=== PATIENT | female | born 1955 | race Caucasian/White ===

== ENCOUNTER 2020-12-27 08:08 | Outpatient (RCR) | payer BC, SELFPAY ==
--- NOTE | 2020-12-30 07:16 | HP.PTEVAL ---
Patient's Visit Information MING BOSTON is a 65 year old F referred to Physical Therapy by Dr. Stephanie Mcintyre MD with a diagnosis of R sided sciatica. Date of Evaluation: 12/27/20 Physical Therapist: Delgado Wall DPT - Visit Plan Frequency: 1-2x /Week Duration: 4-6 Weeks Plan: Start with extension progression in prone and standing. Pt. to complete x6 daily. Pt. to add in lumbar support in sitting. Pt. to avoid flexion positioning until symptoms reduce. Ass symptoms reduce add in core stability exercises and progress back into IADLs as tolerated. - Subjective Pt. is here today for her initial evaluation with diagnosis of R sided sciatica. Her pain has been occuring for a bit over a month. Pt. reports no mech of injury, but just started and gradually became worse. She has tried chiropractic without much relief. She does report reduction in symptoms with prescription meds. Increases pain: prolonged sitting, sidelying, bending forward. Decreases pain: walking and standing, pain medication. Pt. reports pain starts slightly in her back, bu is more painful down her leg to her foot at times. Currently in her calf 01/11. Pt. denies N/T, but did feel like her R leg gave out on her today when she was standign bent over at her table working. Pt. does not work outside of the home, but does typically do a lot of her household work. Currently she has been trying to do some, but children have been helping out more. Pt. did have an MRI, but did not have results with her. She was unsure of results, but thought it said something about stenosis. She to see pain management in Wednesday01/03/21. Pt. is hopeful to reduce symptoms in order to get back to all household work activities and sleep better without limitations. - Pain R lumbar spine Pain Intensity (Out of 10): 0 Pain Intensity Range: 0, 9 R leg Pain Intensity (Out of 10): 4 Pain Intensity Range: 9 - Objective POSTURE: Pt. has slight flexed posture. Pt. has no lateral shift, mild FH posture. Equal iliac crest heights. PALPATION: Pt. has stiffness with palaption of lumbar spine with PA spring testing at L3-S1, mild pain at L4/L5, L5/S1. No pain at piriformis, no pain with palpation of HS or calf musculature. NEURO: Pt. has normal sensation to light touch throughout BLEs. Pt. has 2+ achilles and patellar DTR of BLEs. Pt. is abl to rise on heels and toes without limitations. ROM: LUMBAR SPINE: flexion- min loss increase NW in calf and HS, exten min loss decrease in symptoms, SB nil loss bilat NE, rotation R min loss increase NW, rotation L nil loss LE. Hips: normal hip ROM bilaterally, normal hip IR/ER without increase in symptoms. Pt. does have tight HS on R side with reports of increased pain suiggesting tension on sciatic nerve. MMT: LLE 5/5 throughout; RLE: ankle DF 4+/5, rest 5/5; knee- ext 4/5; flexion 5/5; hip- flexion 4/5, abd 4/5, ext 4+/5. Core strength- fair mild increase NW. GAIT: Pt. ambulates without AD. She has normal pattern with slight lateral hip translation. She does report increased symptoms with walking in her R calf. - Special Tests L/S Slump test left side: Negative L/S Slump test right side: Positive L/S Left Straight Leg Raise: Negative L/S Right Straight Leg Raise: Positive Lumbar Standing: Flexion - Mechanical Response: No effect Lumbar Standing: Flexion - Symptoms During Testing: Increases Lumbar Standing: Flexion - Symptoms After Testing: Worse Lumbar Standing: Extension - Mechanical Response: No effect Lumbar Standing: Extension - Symptoms During Testing: Decreases Lumbar Standing: Extension - Symptoms After Testing: Centralized Lumbar Standing: Right Side Glides - Mechanical Response: No effect Lumbar Standing: Right Side [place] - Symptoms During Testing: No effect Lumbar Standing: Right Side [place] - Symptoms After Testing: No effect Lumbar Standing: Left Side [place] - Mechanical Response: No effect Lumbar Standing: Left Side [place] - Symptoms During Testing: No effect Lumbar Standing: Left Side [place] - Symptoms After Testing: No effect Lumbar Lying: Extension - Mechanical Response: Increases motion Lumbar Lying: Extension - Symptoms During Testing: Decreases Lumbar Lying: Extension - Symptoms After Testing: Better - Goals Goal 1:: LTG: Pt. to be I with HEP. Goal Time Frame: 2-4 Weeks Goal 2:: STG: pt. to be able to sit in confortable chair for 30min without increase in distal symptoms. Goal Time Frame: 2-4 Weeks Goal 3:: STG: Pt. to have reduce in radiating symptoms by 50% in RLE. Goal Time Frame: 2 Weeks Goal 4:: LTG: Pt. to have 0/10 pain in RLE or lumbar spine. Goal Time Frame: 4-6 Weeks Goal 5:: STG: Pt. to sleep without increase in symptoms allowing for increased quality of life. Goal Time Frame: 2-4 Weeks Goal 6:: LTG: Pt. to resume all houshold work without increase in symptoms. Goal Time Frame: 4-6 Weeks - Rehabilitation Potential Physical Therapy Diagnosis: Pt. has signs and symptoms consistent with R sided sciatica. Pt. did have positive response with extension progression today. Pt. reports centralization of pain from calf to posterior thig, no pain after REIL. Pt. would benefit from PT to work on extension progression then progress to core stability exercises. Rehabilitation Potential: Excellent - Anticipated Interventions Patient/Client Instruction: Educate patient on: Condition, Plan of Care, Risk Factors, Benefits of Fitness Program For the Purpose of:: To improve decision making, To facilitate caregiver knowledge, To improve self management, To prevent re-injury, To improve ability to perform tasks related to life management, To improve tolerance to ADL's Therapeutic Exercise to Include: Strength training, Power training, Body mechanics, Postural training, Flexibilty training, Passive ROM, Active ROM, Dynamic Lumbar Stabilization, Adalberto Exercises For the Purpose of:: To decrease pain, To decrease swelling/inflammation, To increase ROM, To improve nutrient delivery to tissue, To increase oxygenation perfusion, To improve muscle performance and motor function, To improve ability to perform ADL's, To improve health of tissue, To decrease soft tissue restriction, To increase flexibility/ROM Manual Therapy Techniques to Include: Mobilization, Soft tissue mobilization For the Purpose of:: To decrease pain, To decrease swelling/inflammation, To increase ROM, To improve nutrient delivery to tissue, To increase oxygenation perfusion, To improve muscle performance and motor function Ultrasound (thermal/non thermal): Yes For the Purpose of:: To decrease pain, To decrease swelling/inflammation, To increase ROM, To improve nutrient delivery to tissue, To increase oxygenation perfusion, To improve muscle performance and motor function Thank you for the opportunity to evaluate your patient. For Medicare and Medicare HMO plans, please review the plan of care and approve it. It will need to be FAXED BACK to us at [phone] for Medicare purposes. For Medicare only, by signing this I certify the plan of care. Please let me know if there are questions or concerns regarding this plan of care. Physician Signature: Date:
== END 2020-12-27 19:00 | disposition home or self-care (01) ==
LOC: PT 08:08
PROVIDERS: PCP Family Medicine; Referring Provider Family Medicine; Visit Provider Family Medicine
DX: M54.31 Sciatica, right side (principal)
CPT/HCPCS: 97161

== ENCOUNTER 2021-12-22 08:31 | Outpatient (CLI) | payer MEDICARE, SELFPAY ==
--- NOTE | 2021-12-22 08:38 | US_ITS ---
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 TECHNICAL QUALITY: Adequate. COMPARISON: None. FINDINGS: Liver: The liver is enlarged and measures 19.4 cm. There is increased echogenicity consistent with fatty infiltration. The bile ducts are within normal limits. There is hepatic color flow. The direction of portal flow is hepatopetal. There is no demonstrated mass lesion. Gallbladder: The patient is status post cholecystectomy. Common Bile Duct (C.B.D.): The common bile duct measures 6 mm. Pancreas: Normal size of the head, body and tail of the pancreas. There is normal echogenicity of the pancreas. There is no demonstrated pancreatic mass or cyst. Right Kidney: Normal size of the right kidney. The right kidney measures 12.4 cm x 6.1 cm x 4.7 cm. Normal renal cortex. The right cortex measures 1.6 cm. There is no demonstrated renal mass or cyst. There is no right hydronephrosis. US/Abdomen Limited IMPRESSION: Hepatomegaly and fatty infiltration of the liver. The patient is status post cholecystectomy. Electronically Signed: Robert Garzon MD at 14:57 EDT ,
--- NOTE | 2021-12-22 08:40 | US_ITS ---
STUDY: ABDOMINAL ULTRASOUND - ELASTOGRAPHY REASON FOR VISIT: Female, 66 years old. History of the hemachromatosis.. TECHNIQUE: Liver stiffness measurements were obtained on a [employer] RS 85 ultrasound machine using a CA 1-7 probe following the SRU guidelines. 3 measurements were obtained using a 2-D-SWE method. The IQR/M was 20% suggesting a quality data set. TECHNICAL QUALITY: Adequate. COMPARISON: Comparison is made with prior study done earlier today. FINDINGS: Liver: Hepatomegaly and fatty infiltration of the liver. Median liver stiffness measured 11 kPa. US/Elastography Parenchyma/Organ IMPRESSION: Liver stiffness measures 11 kPa compatible with F3 Metavir score. Electronically Signed: Robert Garzon MD at 14:59 EDT ,
== END 2021-12-22 23:59 | disposition home or self-care (01) ==
LOC: US 08:35
PROVIDERS: PCP Family Medicine; Referring Provider Internal Medicine Gastroenterology; Visit Provider Internal Medicine Gastroenterology
DX: E83.119 Hemochromatosis, unspecified (principal)
CPT/HCPCS: 76705; 76981

== ENCOUNTER → 2022-10-12 | Outpatient (CLI) | payer MEDICARE, SELFPAY ==
--- NOTE | 2022-10-12 09:15 | RAD_ITS ---
STUDY: X-RAY - ESOPHAGUS (BARIUM SWALLOW) WITH FLUOROSCOPY REASON FOR EXAM: Female, 67 years old. DYSPHAGIA TECHNIQUE: 18 view(s) of the esophagus were obtained following swallowing of barium. FLUOROSCOPY TIME (if supplied): (33 seconds) minutes/seconds COMPARISON: None. FINDINGS: There is no demonstrated esophageal foreign body. There is no demonstrated stricture or mucosal abnormality. Normal gastroesophageal junction, without a demonstrated hiatal hernia. The patient ingested a 12 mm tablet of barium without any difficulty. Normal visualized aortic arch and descending thoracic aorta. Normal visualized pulmonary parenchyma. Normal visualized osseous structures of the thorax. RAD/Esophagus Dual Contrast IMPRESSION: Normal plain film x-ray examination (barium swallow) of the esophagus. Electronically Signed: Robert Garzon MD at 8:14 EST ,
== END | disposition home or self-care (01) ==
PROVIDERS: PCP Family Medicine; Visit Provider Internal Medicine Gastroenterology
DX: R13.10 Dysphagia, unspecified (principal)
CPT/HCPCS: 74221

== ENCOUNTER → 2023-11-05 | Outpatient (CLI) | payer MEDICARE, SELFPAY ==
--- NOTE | 2023-11-05 07:23 | CT_ITS ---
CT RIGHT LOWER EXTREMITY WITH 3-D IMAGING CLINICAL INDICATION: Unilateral primary osteoarthritis, right knee. TECHNIQUE: Axial CT images of the right lower extremity (including right hip, right knee, and right ankle) was performed without IV contrast material. Coronal and sagittal reformats were provided. RADIATION DOSAGE (If Supplied By Facility): CTDIvol = ( 18.65 ) mGy, DLP = ( 1271.57 ) mGycm COMPARISON: No relevant prior comparison study available. FINDINGS: Bones: There is pubic symphysis arthrosis. Normal right hip joint. There is tricompartment degenerative arthrosis with joint space narrowing, marginal osteophyte formation, most severe in the medial femorotibial compartment. There is subtalar joint arthrosis at the middle facet. There is a small plantar calcaneal spur. Osseous structures are intact without evidence of fracture or dislocation. No lytic or blastic osseous masses. Soft Tissues: There is a large right knee joint effusion. There is a 8 mm calcified loose body in the suprapatellar bursa. The deep soft tissue structures are unremarkable. The superficial soft tissues are unremarkable without evidence of edema, hematoma, or foreign body. CT/Extremity Lower without Contra IMPRESSION: Tricompartment degenerative arthrosis of the right knee, most severe in the medial femorotibial compartment. Large right knee joint effusion, with a 8 mm calcified loose body in the suprapatellar bursa. Electronically Signed: Keith Carney MD at 10:00 EST ,
--- OUTSIDE RECORDS SUMMARY | 2023-11-05 07:28 | XMS RPT_ITS | CCD ---
Author Name Unknown Address [id number] [place] [address] Organization [facility] Care Team Providers Care Market Research Lead Name Role Phone Wily Kelley Primary Care Provider WARREN CORONA., DR. TABOR Attending [facility] PH[facility]IAN, NOT RECORDED Primary Care Unavaila Khurram Hong MD Primary Care Provider [phone] Nathan Johnson MD Unavailable Khurram Kelley MD Primary Care Provider Khurram KELLEY MD Unavailable STEPHANIE BARCLAY MD Unavailable PHYSICAL THERAPY, CONSULT Unavailable Unaruslan NEVAREZ Unavailable Unavailable MARIO WOODY Unavailable PAIN MANAGEMENT, QING Unavailable [phone] FABIANO TRACEY MD Unavailable Marita Guzmán RN Unavailable Unavailable MILLY BARCLAY MD Unavailable CROW SALVADOR MD Unavailable Yolis Lares Unavailable Unavailable ALEX HUMPHREY RN Unavailable Unavailable LUPE GARNER Unavailable Unavailable YOGESH CORRAL-DIMAS Donovan Unavailable Cecile Jerry Unavailable Unavailable NAN GOVEA Unavailable Unavailable ALESSANDRA GOVEA Unavailable Unavailable Madisyn Govea Unavailable Unavailable Hernan GOVEA MD Unavailable Hilary Rodriguez Unavailable Unavailable HILARY RODRIGUEZ Unavailable Unavailable Emily Camarena Unavailable Unavailable Renae Jiménez Unavailable Unavailable VIKKI JIMÉNEZ MD Unavailable Jessy Adonay Unavailable Unavailable Loyda RN, Carline Unavailable Unavaila rosalinda Winchester RN, Liliana Unavailable Unavailable MAGGYJENNIFER Unavailable Unavailable Unavailable Unavailable KORNHAUS, R STEPHANIE Attending Unavailable KORNHAUS, R STEPHANIE Primary Care Unavailable KORNHAUS, R STEPHANIE Admitting Unavailable DIMAS ZUÑIGA NP Consulting Unavailab le PROVIDER, UNKNOWN Consulting Unavailable PROVIDER, UNKNOWN Consulting Unavailable KORNHAUS, R STEPHANIE Attending Unavailable KORNHAUS, R STEPHANIE Primary Care Unavailable KORNHAUS, R STEPHANIE Admitting Unavailable KORNHAUS, R STEPHANIE Attending Unavailable KORNHAUS, R STEPHANIE Primary Care Unavailable KORNHAUS, R STEPHANIE Admitting Unavailable KORNHAUS, R STEPHANIE Primary Care Unavailable SOPHIE BOTELLO Referring Unavailable KORNHAUS, R STEPHANIE Primary Care Unavailable SOPHIE BOTELLO Referring Unavailable KORNHAUS, R STEPHANIE Primary Care Unavailable SOPHIE BOTELLO Referring Unavailable KORNHAUS, R STEPHANIE Primary Care Unavailable SOPHIE BOTELLO Referring Unavailable NATHAN JOHNSON Referring Unavailable KORNHAUS, R STEPHANIE Primary Care Unavailable NATHAN JOHNSON Referring Unavailable KORNHAUS, R STEPHANIE Primary Care Unavailable NATHAN JOHNSON Referring Unavailable KORNHAUS, R STEPHANIE Primary Care Unavailable NATHAN JOHNSON Referring Unavailable KORNHAUS, R SETPHANIE Primary Care Unavailable NATHAN JOHNSON Attending Unavailable KORNHAUS, R STEPHANIE Primary Care Unavailable KORNHAUS, R STEPHANIE Primary Care Unavailable KORNHAUS, R STEPHANIE Primary Care Unavailable SOPHIE BOTELLO Referring Unavailable KORNHAUS, R STEPHANIE Primary Care Unavailable SOPHIE BOTELLO Referring Unavailable Allergies Allergy Classification Reported Allergen(s) Allergy Type Date of Onset Reaction(s) Facility (15 sources) Acetaminophen / HYDROcodone; Translations: [HYDROCODONE-ACET AMINOPHEN] Drug Allergy 1 Other: See Comments [facility] (15 sources) Dust; Translations: [DUST] Propensity to adverse reactions 7 Unknown [facility] (1 source) 0 [facility] [employer] [facility] (1 source) 0 [facility] [employer] [facility] [place].; [facility] [employer] [facility] [place]. (1 source) 0 [facility] [employer] [facility] [place].; [facility] [employer] [facility] [place]. (1 source) [facility] [email or web address]; [facility] ([facility] source) Acetaminophen / HYDROcodone Drug Allergy [facility] Repository Medications Current Medications Medication Drug Class(es) Dates Sig (Normalized) Sig (Original) benzonatate 200 mg oral capsule (4 sources) Non-narcotic Antitussive Start: 10-19-2023 Completed/Discontinued Medications Medication Drug Class(es) Dates Sig (Normalized) Sig (Original) acetaminophen 300 mg / codeine phosphate 30 mg oral tablet (5 sources) Opioid Agonist Start: 12-24-2020 End: 06-01-2022 take 1 tablet by mouth every four to six hours as needed acetaminophen-codei ne (TYLENOL-COD #3) 300-30 mg per tablet Take 1 tablet by mouth as needed. Every 4-6 hours as needed. 0 12/24/2020 06/01/2022 Discontinued Problems Active Problems Problem Classification Problem Date Documented Date Episodic/Chronic Abdominal pain (2 sources) Epigastric pain; Translations: [Epigastric pain] Onset: 09-08-2022 Episodic Administrative/socia l admission (8 sources) Advance directive discussed with patient; Translations: [Other specified counseling] Onset: 10-12-2022 03-09-2023 Episodic Anxiety disorders (2 sources) Mixed anxiety and depressive disorder; Translations: [Anxiety disorder, unspecified] 10-19-2023 Chronic Complications of surgical procedures or medical care (20 sources) Prolapse of vaginal vault after hysterectomy; Translations: [Prolapse of vaginal vault after hysterectomy] Onset: 09-14-2011 Chronic Conditions associated with dizziness or vertigo (2 sources) Dizziness; Translations: [Dizziness and giddiness] 09-10-2021 Episodic Deficiency and other anemia (2 sources) Anemia; Translations: [Anemia, unspecified] 09-10-2022 Episodic Diabetes mellitus with complications (4 sources) Type 2 diabetes mellitus in obese; Translations: [Type 2 diabetes mellitus with other specified complication] 09-10-2021 Chronic Diabetes mellitus without complication (12 sources) Type 2 diabetes mellitus controlled by diet; Translations: [Type 2 diabetes mellitus without complications] 10-22-2022 Chronic Diabetes mellitus without complication (20 sources) Prediabetes; Translations: [Prediabetes] 03-29-2017 Episodic Disorders of lipid metabolism (20 sources) Hyperlipidemia; Translations: [Hyperlipidemia, unspecified] 03-09-2023 Chronic Disorders of teeth and jaw (2 sources) Edentulous; Translations: [Complete loss of teeth, unspecified cause, unspecified class] 09-10-2021 Chronic Essential hypertension (2 sources) Good hypertension control; Translations: [Essential (primary) hypertension] 10-19-2023 Chronic Gastroduodenal ulcer (except hemorrhage) (2 sources) Peptic ulcer; Translations: [Peptic ulcer, site unspecified, unspecified as acute or chronic, without hemorrhage or perforation] 04-28-2022 Chronic Genitourinary symptoms and ill-defined conditions (20 sources) Urinary incontinence; Translations: [Unspecified urinary incontinence] Onset: 09-14-2011 Chronic Genitourinary symptoms and ill-defined conditions (2 sources) Increased frequency of urination; Translations: [Frequency of micturition] 10-19-2023 Episodic Immunizations and screening for infectious disease (20 sources) Requires vaccination; Translations: [Encounter for immunization] 09-01-2021 Episodic Osteoarthritis (2 sources) Osteoarthritis of multiple joints ; Translations: [Polyosteoarthritis, unspecified] 09-10-2021 Chronic Other aftercare (2 sources) H/O: high risk medication; Translations: [Other intermediate (current) drug therapy] 09-10-2021 Episodic Other and unspecified benign neoplasm (4 sources) History of polyp of colon; Translations: [Personal history of colonic polyps] 09-10-2021 Episodic Other infections; including parasitic (4 sources) Personal history of other infectious and parasitic diseases Onset: 07-04-2020 10-19-2023 Episodic Other liver diseases (2 sources) Steatosis of liver; Translations: [Fatty (change of) liver, not elsewhere classified] Onset: 07-06-2015 09-10-2021 Chronic Other lower respiratory disease (2 sources) Cough; Translations: [Cough] 10-19-2023 Episodic Other non-epithelial cancer of skin (2 sources) Other and unspecified malignant neoplasm of other specified sites of skin 11-15-2014 Episodic Other nutritional; endocrine; and metabolic disorders (20 sources) Hereditary hemochromatosis; Translations: [Hereditary hemochromatosis] Onset: 07-20-2014 07-20-2014 Chronic Other nutritional; endocrine; and metabolic disorders (20 sources) Hemochromatosis; Translations: [Hemochromatosis, unspecified] 04-28-2022 Chronic Other nutritional; endocrine; and metabolic disorders (12 sources) Body mass index 30+ - obesity; Translations: [Obesity, unspecified] 09-10-2021 Chronic Other nutritional; endocrine; and metabolic disorders (1 source) Hereditary hemochromatosis; Translations: [Hemochromatosis, hereditary (HCC)] Onset: 07-20-2014 Chronic Other screening for suspected conditions (not mental disorders or infectious disease) (20 sources) Nonspecific abnormal electrocardiogram [ECG] [EKG]; Translations: [Other specified abnormal findings of blood chemistry] 09-10-2021 Episodic Other upper respiratory disease (2 sources) Allergic rhinitis, cause unspecified 10-02-2019 Chronic Other upper respiratory infections (4 sources) Acute bacterial sinusitis; Translations: [Acute sinusitis, unspecified] 09-10-2021 Episodic Prolapse of female genital organs (14 sources) Disorder of rectum; Translations: [Rectocele] Onset: 09-14-2011 Chronic Residual codes; unclassified (2 sources) Overweight; Translations: [Other specified conditions influencing health status] 09-01-2021 Episodic Residual codes; unclassified (2 sources) Family history of cancer of colon; Translations: [Family history of malignant neoplasm of digestive organs] 09-10-2021 Episodic Residual codes; unclassified (2 sources) Patient encounter status; Translations: [Encounter for prophylactic measures, unspecified] 07-21-2023 Episodic Residual codes; unclassified (2 sources) Disturbance in sleep behavior; Translations: [Sleep disorder, unspecified] 07-21-2023 Episodic Spondylosis; intervertebral disc disorders; other back problems (2 sources) Spinal stenosis of lumbar region; Translations: [Spinal stenosis, lumbar region without neurogenic claudication] 09-10-2021 Episodic Unclassified (14 sources) Herniated urinary bladder; Translations: [Cystocele] Onset: 09-14-2011 Unclassified (2 sources) 09-10-2021 Unclassified (2 sources) 09-10-2021 Unclassified (2 sources) 09-10-2021 Past or Other Problems Problem Classification Problem Date Documented Da te Episodic/Chronic Abdominal hernia (2 sources) Hiatal hernia; Translations: [Diaphragmatic hernia without obstruction or gangrene] Onset: 09-17-2022 06-08-2023 Episodic Inflammation; infection of eye (except that caused by tuberculosis or sexually transmitteddisease) (2 sources) Keratitis; Translations: [Unspecified keratitis] Onset: 12-08-2014 09-10-2021 Episodic Results Test Name Value Interpretation Reference Range Facil ity Vital Signs Date Time Vital Sign Value Performing Clinician Andres coon 10-19-2023 10:58-0500 Body height 156.21 cm Liliana Winchester RN [facility] [place].; [employer] [place] [facility] [place]. 10-19-2023 10:58-0500 Body mass index (BMI) [Ratio] 36.71 kg/m2 Liliana Winchester RN [facility] [employer] [facility] [place].; [employer] [facility] [employer] [facility] [place]. 10-19-2023 10:58-0500 Body surface area Derived from formula 1.89 m2 Liliana Winchester RN [facility] [employer] [facility] [place].; [employer] [facility] [employer] [facility] [place]. 10-19-2023 10:58-0500 Body weight 89.59 kg Liliana Winchester RN [facility] [employer] [facility] [place].; [employer] [facility] [employer] [place]. 10-19-2023 10:58-0500 Diastolic blood pressure 73 mm[Hg] Liliana Winchester RN [facility] [employer] [facility] [place].; [employer] [facility] [employer] [facility] [place]. 10-19-2023 10:58-0500 Heart rate 71 /min Liliana Winchester RN [facility] [facility] [place].; [employer] [facility] [place]. 10-19-2023 10:58-0500 Systolic blood pressure 123 mm[Hg] Liliana Winchester RN [facility] [employer] [facility] [place].; [employer] [facility] [employer]. 08-12-2023 09:43-0500 Body temperature 97.3 [degF] Treatment Wstr Work Phone: [facility] 08-12-2023 09:43-0500 Diastolic blood pressure 68 mm[Hg] Treatment Wstr Work Phone: [facility] 08-12-2023 09:43-0500 Heart rate 75 /min Treatment Wstr Work Phone: [facility] 08-12-2023 09:43-0500 SaO2% (BldA) [Mass fraction] 93 % Treatment Wstr Work Phone: [facility] 08-12-2023 09:43-0500 Systolic blood pressure 158 mm[Hg] Treatment Wstr Work Phone: [facility] 07-21-2023 13:04-0400 Body height 156.21 cm Marita Guzmán RN [facility] [employer] [facility] [place], Inc.; [employer] [facility] [employer] [facility] [place], Inc[facility] 07-21-2023 13:04-0400 Body mass index (BMI) [Ratio] 35.55 kg/m2 Marita Guzmán RN [facility] [employer] [facility] [place], Inc.; [employer] [facility] [employer] [facility] [place], Inc[facility] 07-21-2023 13:04-0400 Body surface area Derived from formula 1.86 m2 Marita Guzmán RN [facility], Inc.; [employer] [facility] [employer] [facility] [place], Inc[facility] 07-21-2023 13:04-0400 Body temperature 98.2 [degF] Marita Guzmán RN [facility] [employer] [facility] [place], Inc.; [employer] [facility] [employer] [facility] [place], [employer]. 07-21-2023 13:04-0400 Body weight 86.75 kg Marita Guzmán RN [facility] [employer] [facility] [place], [facility].; [employer] [facility] [employer] [facility] [place], Inc[facility] 07-21-2023 13:04-0400 Diastolic blood pressure 71 mm[Hg] Marita Guzmán RN [facility] [employer] [facility] [place], Inc.; [employer] [facility] [employer] [facility] [place] Inc[facility] 07-21-2023 13:04-0400 Heart rate 70 /min Marita Guzmán RN [facility] [employer] [facility] [place], Inc.; [employer] [facility] [employer] [facility] [place], [employer]. 07-21-2023 13:04-0400 Systolic blood pressure 123 mm[Hg] Marita Guzmán RN [facility] [employer] [facility] [place], Inc.; [employer] [facility] [employer] [facility] [place], Inc[facility] 06-23-2023 09:24-0400 Body height 157.5 cm Nathan Johnson MD Work Phone: [facility] 06-23-2023 09:24-0400 Body temperature 98.01 [degF] Nathan Johnson MD Work Phone: [facility] 06-23-2023 09:24-0400 Body weight 86.86 kg Nathan Johnson MD Work Phone: [facility] 06-23-2023 09:24-0400 Diastolic blood pressure 76 mm[Hg] Nathan Johnson MD Work Phone: [facility] 06-23-2023 09:24-0400 Heart rate 61 /min Nathan Johnson MD Work Phone: [facility] 06-23-2023 09:24-0400 SaO2% (BldA) [Mass fraction] 96 % Nathan Johnson MD Work Phone: [facility] 06-23-2023 09:24-0400 Systolic blood pressure 160 mm[Hg] Nathan Johnson MD Work Phone: [facility] 06-08-2023 13:42-0400 Body height 156.21 cm Carline Scales RN [facility].; [facility], [facility]. 06-08-2023 13:42-0400 Body mass index (BMI) [Ratio] 34.76 kg/m2 Carline Scales RN [facility], [employer] [facility], [facility]. 06-08-2023 13:42-0400 Body surface area Derived from formula 1.85 m2 [facility]line Scales [facility].; [facility], [facility]. 06-08-2023 13:42-0400 Body weight 84.82 kg Carline Scales RN [facility].; [facility], [facility]. 06-08-2023 13:42-0400 Diastolic blood pressure 73 mm[Hg] Carline Scales RN [facility] [employer] [facility] [employer].; [facility], [facility]. 06-08-2023 13:42-0400 Heart rate 70 /min Carline Scales RN [facility].; [facility], [facility]. 06-08-2023 13:42-0400 Systolic blood pressure 144 mm[Hg] Carline Scales RN [facility] [employer] [facility] [place].; [facility], [facility]. 05-17-2023 09:41-0400 Diastolic blood pressure 72 mm[Hg] Treatment Wstr Work Phone: [facility] 05-17-2023 09:41-0400 Heart rate 66 /min Treatment Wstr Work Phone: [facility] 05-17-2023 09:41-0400 Systolic blood pressure 120 mm[Hg] Treatment Wstr Work Phone: [facility] 05-17-2023 09:24-0400 SaO2% (BldA) [Mass fraction] 96 % Treatment Wstr Work Phone: [facility] 03-09-2023 11:23-0400 Body height 156.21 cm Carline Scales RN [facility] [employer] [facility] [place], Inc.; [facility], Inc[facility] 03-09-2023 11:23-0400 Body mass index (BMI) [Ratio] 35.6 kg/m2 Carline Scales RN [facility] [employer] [facility] [place], Inc.; [facility], [facility]. 03-09-2023 11:23-0400 Body surface area Derived from formula 1.87 m2 Carline Scales RN [facility] [employer] [facility] [place], [employer].; [facility], [facility]. 03-09-2023 11:23-0400 Body weight 86.86 kg Carline Scales RN [facility] [employer] [facility] [place], Inc.; [facility], [facility]. 03-09-2023 11:23-0400 Diastolic blood pressure 72 mm[Hg] Carline Scales RN [facility] [employer] [facility] [employer] [facility], [facility]. 03-09-2023 11:23-0400 Heart rate 65 /min Carline Scales RN [facility] [employer] [facility] [place], Inc.; [facility], [employer]. 03-09-2023 11:23-0400 Systolic blood pressure 138 mm[Hg] [facility].; [facility] 02-08-2023 09:47-0400 Diastolic blood pressure 64 mm[Hg] Treatment Wstr Work Phone: [facility] 02-08-2023 09:47-0400 Heart rate 64 /min Treatment Wstr Work Phone: [facility] 02-08-2023 09:47-0400 Systolic blood pressure 112 mm[Hg] Treatment Wstr Work Phone: [facility] 02-08-2023 09:30-0400 Body temperature 97.59 [degF] Treatment Wstr Work Phone: [facility] 02-08-2023 09:30-0400 Respiratory rate 16 /min Treatment Wstr Work Phone: [facility] 02-08-2023 09:30-0400 SaO2% (BldA) [Mass fraction] 95 % Treatment Wstr Work Phone: [facility] 10-12-2022 16:21-0500 Body height 156.21 cm Khurram KELLEY MD [facility]: [facility]; [facility] 10-12-2022 16:21-0500 Body mass index (BMI) [Ratio] 35.47 kg/m2 Khurram KELLEY MD Work Phone: [facility]; [facility] 10-12-2022 16:21-0500 Body surface area Derived from formula 1.86 m2 Khurram KELLEY MD Work Phone: [facility]; [facility] 10-12-2022 16:21-0500 Body temperature 97.9 [degF] Khurram KELLEY MD Work Phone: [facility] 10-12-2022 16:21-0500 Body weight 86.55 kg Khurram KELLEY MD Work Phone: [facility]. 10-12-2022 16:21-0500 Diastolic blood pressure 87 mm[Hg] Khurram KELLEY MD Work Phone: [facility]. 10-12-2022 16:21-0500 Heart rate 68 /min Khurram KELLEY MD Work Phone: [facility]. 10-12-2022 16:21-0500 Inhaled oxygen concentration 21 % Khurram KELLEY MD Work Phone: [facility].; [facility]. 10-12-2022 16:21-0500 SaO2% (BldA) [Mass fraction] 97 % Khurram KELLEY MD Work Phone: [facility]. 10-12-2022 16:21-0500 Systolic blood pressure 144 mm[Hg] Khurram KELLEY MD Work Phone: [facility].; [facility]. 09-08-2022 09:29-0500 Body height 156.21 cm Carline Scales [facility].; [facility]. 09-08-2022 09:29-0500 Body mass index (BMI) [Ratio] 35.13 kg/m2 Carline Scales RN [facility].; [facility], [facility]. 09-08-2022 09:29-0500 Body surface area Derived from formula 1.86 m2 Carline Scales RN [facility] [employer] [facility] [place].; [facility]. 09-08-2022 09:29-0500 Body temperature 97.7 [degF] [facility].; [facility]. 09-08-2022 09:29-0500 Body weight 85.73 kg Carline Scales RN [facility].; [facility]. 09-08-2022 09:29-0500 Diastolic blood pressure 75 mm[Hg] Carline Scales RN [facility].; [facility]. 09-08-2022 09:29-0500 Heart rate 71 /min Carline Scales RN [facility].; [facility] 09-08-2022 09:29-0500 Systolic blood pressure 145 mm[Hg] Carline Scales RN [facility].; [facility] 06-01-2022 09:37-0400 Diastolic blood pressure 66 mm[Hg] Treatment Wstr Work Phone: [facility] 06-01-2022 09:37-0400 Heart rate 81 /min Treatment Wstr Work Phone: [facility] [facility] 06-01-2022 09:37-0400 Systolic blood pressure 127 mm[Hg] Treatment Wstr Work Phone: [facility] 06-01-2022 09:06-0400 Body height 157.5 cm Sophie Botello MD Work Phone: [facility] 06-01-2022 09:06-0400 Body temperature 97.3 [degF] Sophie Botello MD Work Phone: [facility] 06-01-2022 09:06-0400 Body weight 89.81 kg Sophie Botello MD Work Phone: [facility] 06-01-2022 09:06-0400 Diastolic blood pressure 73 mm[Hg] Sophie Botello MD Work Phone: [facility] 06-01-2022 09:06-0400 Heart rate 74 /min Sophie Botello MD Work Phone: [facility] 06-01-2022 09:06-0400 Systolic blood pressure 126 mm[Hg] Sophie Botello MD Work Phone: [facility] 04-28-2022 14:18-0400 Body height 156.21 cm Carline Scales RN [facility], [employer] [facility] [place], Inc. 04-28-2022 14:18-0400 Body mass index (BMI) [Ratio] 36.43 kg/m2 Carline Scales RN [facility] [place], [employer].; [employer] [facility] [place], [facility]. 04-28-2022 14:18-0400 Body surface area Derived from formula 1.88 m2 Carline Scales RN [facility] [place], [employer].; [facility], [facility]. 04-28-2022 14:18-0400 Body weight 88.91 kg Carline Scales RN [facility], [employer].; [facility], [facility]. 04-28-2022 14:18-0400 Diastolic blood pressure 73 mm[Hg] Carline Scales RN [facility] [place] [employer].; [facility] [place], [facility]. 04-28-2022 14:18-0400 Heart rate 75 /min Carline Scales RN [facility] [place], [employer].; [facility], Inc. 04-28-2022 14:18-0400 Systolic blood pressure 119 mm[Hg] Carline Scales RN [facility] [place] [employer].; [facility] [place], [facility]. 09-10-2021 10:56-0500 Body temperature 97.4 [degF] Liliana Winchester RN [facility] [place] [employer].; [facility] [place] [employer]. 09-10-2021 10:56-0500 Heart rate 83 /min Liliana Winchester RN [facility] [place], [employer].; [facility] [place], [employer]. 09-10-2021 10:56-0500 Inhaled oxygen concentration 21 % Liliana Winchester RN [facility] [place], Inc.; [facility] [place] [employer]. 09-10-2021 10:56-0500 SaO2% (BldA) [Mass fraction] 95 % Liliana Winchester [facility], [facility].; [facility]. 09-01-2021 10:14-0500 Body height 156.21 cm ALEX GRATE SHAKIRA [facility].; [facility]. 09-01-2021 10:14-0500 Body mass index (BMI) [Ratio] 36.43 kg/m2 ALEX GRATE [facility].; [facility], [facility]. 09-01-2021 10:14-0500 Body surface area Derived from formula 1.[address] [facility].; [facility]. 09-01-2021 10:14-0500 Body temperature 97.7 [degF] ALEX GRATE [facility], [facility].; [facility], [facility]. 09-01-2021 10:14-0500 Body weight 88.[address] [facility].; [facility], [facility]. 09-01-2021 10:14-0500 Diastolic blood pressure 76 mm[Hg] ALEX GRATE [facility].; [facility], [employer]. 09-01-2021 10:14-0500 Heart rate 65 /min ALEX GRATE [facility], [facility].; [facility], [facility]. 09-01-2021 10:14-0500 Inhaled oxygen concentration 21 % ALEX GRATE [facility], [facility].; [facility], [facility]. 09-01-2021 10:14-0500 SaO2% (BldA) [Mass fraction] 94 % ALEX GRATE SHAKIRA [facility], [facility].; [facility], [employer]. 09-01-2021 10:14-0500 Systolic blood pressure 143 mm[Hg] ALEX GRATE [facility], [facility].; [facility], [employer]. 04-10-2021 13:18-0400 Body height 156.21 cm Khurram KELLEY MD Work Phone: [facility] [employer] [facility]Method[facility]mundsonDigital [employer]. 04-10-2021 13:18-0400 Body mass index (BMI) [Ratio] 36.81 kg/m2 Khurram KELLEY MD Work Phone: [facility] [place] [employer].; [facility] [place] [employer]. 04-10-2021 13:18-0400 Body surface area Derived from formula 1.89 m2 Khurram KELLEY MD Work Phone: [facility] [place] [employer].; [employer] [facility] [place] [employer]. 04-10-2021 13:18-0400 Body weight 89.81 kg Khurram KELLEY MD Work Phone: [facility] [place] [employer].; [employer] [facility] [place] [employer]. 04-10-2021 13:18-0400 Diastolic blood pressure 68 mm[Hg] Khurram KELLEY MD Work Phone: [facility] [place] [employer].; [facility] [place] [employer]. 04-10-2021 13:18-0400 Heart rate 69 /min Khurram KELLEY MD Work Phone: [facility] [place] [employer].; [facility] [place] [employer]. 04-10-2021 13:18-0400 Systolic blood pressure 110 mm[Hg] Khurram KELLEY MD Work Phone: [facility] [place] [employer].; [facility] [place] [employer]. 12-14-2020 08:52-0500 Body height 156.21 cm ALEX HUMPHREY RN [facility] [place] [employer].; [facility] Hospital[facility] [employer] [facility]. 12-14-2020 08:52-0500 Body mass index (BMI) [Ratio] 36.17 kg/m2 ALEX HU[facility]HREY [facility].; [facility], Inc[facility] 12-14-2020 08:52-0500 Body surface area Derived from formula 1.88 m2 ALEX GRATE RN [facility], [facility].; [facility], Inc. 12-14-2020 08:52-0500 Body weight 88.27 kg ALEX GRATE RN [facility], Inc.; [facility], Inc. 12-14-2020 08:52-0500 Diastolic blood pressure 84 mm[Hg] ALEX GRATE RN [facility], Inc.; [facility], Inc. 12-14-2020 08:52-0500 Heart rate 84 /min ALEX GRATE RN [facility], Inc.; [facility], Inc. 12-14-2020 08:52-0500 Systolic blood pressure 167 mm[Hg] ALEX GRATE RN [facility], Inc.; [facility], Inc. 11-27-2020 13:12-0500 Body height 156.21 cm Madisyn Pantoja [facility] [place], Inc.; [facility], Inc. 11-27-2020 13:12-0500 Body mass index (BMI) [Ratio] 35.69 kg/m2 Madisyn Pantoja [facility], Inc.; [facility], Inc. 11-27-2020 13:12-0500 Body surface area Derived from formula 1.87 m2 Madisyn Pantoja [facility], Inc.; [facility], Inc. 11-27-2020 13:12-0500 Body weight 87.09 kg Madisyn Pantoja [facility] [place], Inc.; [facility] [place], Inc. 11-27-2020 13:12-0500 Diastolic blood pressure 71 mm[Hg] Madisyn Pantoja [facility] [place], Inc.; [facility] [place], Inc. 11-27-2020 13:12-0500 Heart rate 80 /min Madisyn A [facility] [place], Inc.; [facility], Inc. 11-27-2020 13:12-0500 Systolic blood pressure 119 mm[Hg] Madisyn Kit Govea [facility], Inc.; [facility], Inc. 11-04-2020 14:11-0500 Body height 156.21 cm Marita Guzmán RN [facility], Inc.; [facility], Inc. 11-04-2020 14:11-0500 Body mass index (BMI) [Ratio] 36.62 kg/m2 Marita Guzmán RN [facility], Inc.; [facility], Inc. 11-04-2020 14:11-0500 Body surface area Derived from formula 1.89 m2 Marita Guzmán RN [facility], Inc.; [facility], Inc. 11-04-2020 14:11-0500 Body weight 89.36 kg Marita Guzmán RN [facility], Inc.; [facility], Inc. 08-20-2020 13:55-0500 Body height 156.21 cm Liliana Winchester RN [facility], Inc.; [facility], Inc. 08-20-2020 13:55-0500 Body mass index (BMI) [Ratio] 36.62 kg/m2 Liliana Winchester RN [facility], Inc.; [facility], Inc. 08-20-2020 13:55-0500 Body surface area Derived from formula 1.89 m2 Liliana Winchester RN [facility], Inc.; [facility], Inc. 08-20-2020 13:55-0500 Body weight 89.36 kg Liliana Winchester RN [facility], Inc.; [facility], Inc. 08-20-2020 13:55-0500 Diastolic blood pressure 74 mm[Hg] Liliana Winchester RN [facility], Inc.; [facility], Inc. 08-20-2020 13:55-0500 Heart rate 75 /min Liliana Winchester RN [facility], Inc.; [facility], Inc. 08-20-2020 13:55-0500 Systolic blood pressure 133 mm[Hg] Liliana Winchester RN [facility], [facility].; [facility], [facility]. 07-24-2020 14:40-0400 Body temperature 97 [degF] Madisyn Govea [facility].; [facility], [facility]. 04-25-2020 15:22-0400 Body height 156.21 cm [facility], [facility].; [facility], [facility]. 04-25-2020 15:22-0400 Body mass index (BMI) [Ratio] 37.36 kg/m2 [facility].; [facility], [facility]. 04-25-2020 15:22-0400 Body surface area Derived from formula 1.9 m2 [facility], [facility].; [facility], [facility]. 04-25-2020 15:22-0400 Body weight 91.17 kg [facility].; [facility], [facility]. 04-25-2020 15:22-0400 Diastolic blood pressure 81 mm[Hg] [facility].; [facility], [facility]. 04-25-2020 15:22-0400 Heart rate 76 /min [facility].; [facility], [facility]. 04-25-2020 15:22-0400 Systolic blood pressure 147 mm[Hg] [facility], [facility].; [facility], [facility]. 10-02-2019 10:33-0500 Body height 156.21 cm ALEX GRATE RN [facility], [facility].; [facility], Inc[facility] 10-02-2019 10:33-0500 Body mass index (BMI) [Ratio] 37.36 kg/m2 ALEX GRATE RN [facility], [facility].; [facility], Inc. 10-02-2019 10:33-0500 Body surface area Derived from formula 1.9 m2 ALEX GRATE RN [facility].; [facility] [employer] [facility] [place], Inc. 10-02-2019 10:33-0500 Body weight 91.17 kg ALEX GRATE RN [facility], Inc.; [facility] [employer] [facility] [place], Inc. 10-02-2019 10:33-0500 Diastolic blood pressure 74 mm[Hg] ALEX GRATE RN [facility] [place], Inc.; [facility] [employer] [facility] [place], Inc. 10-02-2019 10:33-0500 Heart rate 70 /min ALEX GRATE RN [facility] [place], Inc.; [facility] [employer] [facility] [place], Inc. 10-02-2019 10:33-0500 Systolic blood pressure 133 mm[Hg] ALEX GRATE RN [facility] [place], Inc.; [facility] [employer] [facility] [place], Inc. 06-08-2019 09:15-0400 Body height 156.21 cm Carline Scales RN [facility] [employer] [facility] [place], Inc.; [facility] [employer] [facility] [place], Inc. 06-08-2019 09:15-0400 Body mass index (BMI) [Ratio] 37.55 kg/m2 Carline Scales RN [facility] [place], Inc.; [facility] [employer] [facility] [place], Inc. 06-08-2019 09:15-0400 Body surface area Derived from formula 1.91 m2 Carline Scales RN [facility] [place], Inc.; [employer] [facility] [place] [facility] [place], Inc. 06-08-2019 09:15-0400 Body weight 91.63 kg Carline Scales RN [facility] Aimee [facility] [place], Inc.; [employer] [facility] [place] [facility] [place], Inc. 06-08-2019 09:15-0400 Diastolic blood pressure 82 mm[Hg] Carline Scales RN [facility] [employer] [facility] [place], Inc.; [employer] [facility] [employer] [facility] [place], Inc. 06-08-2019 09:15-0400 Heart rate 59 /min Carline Scales RN [facility] Lucky Pai [facility] [place], Inc.; [employer] [facility] [employer] [facility] [place], Inc. 06-08-2019 09:15-0400 Systolic blood pressure 160 mm[Hg] Carline Scales RN [facility] [place], Inc.; [employer] [facility] [employer] [facility] [place], Inc. 03-16-2019 10:37-0400 Body height 156.21 cm Liliana Winchester RN [facility] [employer] [facility] [place], Inc.; [employer] [facility] [employer] 03-16-2019 10:37-0400 Body mass index (BMI) [Ratio] 37.4 kg/m2 Liliana Winchester RN [facility] [employer] [facility] [place], Inc.; [employer] [facility] [employer] [facility] [place], Inc. 03-16-2019 10:37-0400 Body surface area Derived from formula 1.91 m2 Liliana Winchester RN [facility] [employer] [facility] [place], Inc.; [employer] [facility] [employer], Inc[employer] 03-16-2019 10:37-0400 Body temperature 97.8 [degF] Liliana Winchester RN [facility] [employer] [facility] [place], [employer].; [facility] [employer] [facility] [place], Inc. 03-16-2019 10:37-0400 Body weight 91.26 kg Liliana Winchester RN [facility] [employer] [facility] [place], Inc.; [employer] [facility] [employer] [facility] [place] [employer]. 03-16-2019 10:37-0400 Diastolic blood pressure 70 mm[Hg] Liliana Winchester RN [facility] [employer] [facility] [place], Inc.; [employer] [facility] [employer], [employer]. 03-16-2019 10:37-0400 Heart rate 67 /min Liliana Winchester RN [facility] [employer] [facility] [place], Inc.; [facility] [employer] [facility] [place], [employer]. 03-16-2019 10:37-0400 Systolic blood pressure 111 mm[Hg] Liliana Winchester RN [facility] [employer] [facility] [place], Inc.; [employer] [facility] [place] [facility] [place] [employer]. 09-29-2018 09:49-0500 Body height 155.57 cm Liliana Winchester RN [facility] [employer] [facility] [place], Inc.; [employer] [facility] [employer], [employer]. 09-29-2018 09:49-0500 Body mass index (BMI) [Ratio] 37.86 kg/m2 Liliana Winchester RN [facility] [employer] [facility] [place], Inc.; [employer] [facility] [employer], [employer] 09-29-2018 09:49-0500 Body surface area Derived from formula 1.9 m2 Liliana Winchester RN [facility] [employer] [facility] [place], Inc.; [employer] [facility] [employer], [employer]. 09-29-2018 09:49-0500 Body weight 91.63 kg Liliana Winchester RN [facility] [place], Inc.; [employer] [facility] [place] [facility] [place], Inc. 09-29-2018 09:49-0500 Diastolic blood pressure 74 mm[Hg] Liliana Winchester RN [facility] [place], Inc.; [employer] [facility] [place] [facility] [place], Inc. 09-29-2018 09:49-0500 Heart rate 67 /min Liliana Winchester RN [facility] [place], Inc.; [facility] [employer] [facility] [place], Inc. 09-29-2018 09:49-0500 Systolic blood pressure 122 mm[Hg] Liliana Winchester RN [facility] [place], Inc.; [employer] [facility] [place] [facility] [place], Inc. 04-21-2018 09:51-0400 Body height 155.57 cm Marita Guzmán RN [facility] [place], Inc.; [facility] [employer] [facility] [place], Inc. 04-21-2018 09:51-0400 Body mass index (BMI) [Ratio] 37.86 kg/m2 Marita Guzmán RN [facility] [place], Inc.; [employer] [facility] [place] [facility] [place], Inc. 04-21-2018 09:51-0400 Body surface area Derived from formula 1.9 m2 Marita Guzmán RN [facility] [place], Inc.; [employer] [facility] [place] [facility] [place], Inc. 04-21-2018 09:51-0400 Body temperature 97.5 [degF] Marita Guzmán RN [facility] [place], Inc.; [employer] [facility] [employer] [facility] [place], Inc. 04-21-2018 09:51-0400 Body weight 91.63 kg Marita Guzmán RN [facility] [place], Inc.; [employer] [facility] [employer], Inc. 04-21-2018 09:51-0400 Diastolic blood pressure 70 mm[Hg] Marita Guzmán RN [facility] [place], Inc.; [employer] [facility] [place] [employer], [employer] 04-21-2018 09:51-0400 Heart rate 66 /min Marita Guzmán RN [facility] [place], Inc.; [employer] [facility] [place] [facility] [place], Inc. 04-21-2018 09:51-0400 Systolic blood pressure 127 mm[Hg] Marita Guzmán RN [facility] [place], Inc.; [employer] [facility] [employer] [facility] [place], Inc. 09-23-2017 11:06-0500 Body height 155.57 cm Liliana Winchester RN [facility] [employer] [facility] [place], Inc.; [facility] [employer] [facility] [place], Inc. 09-23-2017 11:06-0500 Body mass index (BMI) [Ratio] 37.86 kg/m2 Liliana Winchester RN [facility] [employer] [facility] [place], Inc.; [facility] [employer] [facility] [place], Inc. 09-23-2017 11:06-0500 Body surface area Derived from formula 1.9 m2 Liliana Winchester RN [facility] [employer] [facility] [place], Inc.; [facility] [employer] [facility] [place], Inc. 09-23-2017 11:06-0500 Body weight 91.63 kg Liliana Winchester RN [facility] [employer] [facility] [place], [employer].; [facility] [place] [facility] [place], Inc. 09-23-2017 11:06-0500 Diastolic blood pressure 75 mm[Hg] Liliana Winchester RN [facility] [employer] [facility] [place], Inc.; [facility] [place] [facility] [place], [employer]. 09-23-2017 11:06-0500 Heart rate 78 /min Liliana Winchester RN [facility] [employer] [facility] [place], Inc.; [facility] [employer] [facility] [place], [employer]. 09-23-2017 11:06-0500 Systolic blood pressure 122 mm[Hg] Liliana Winchester RN [facility] [employer] [facility] [place], Inc.; [facility] [place] [facility] [place], Inc. 06-18-2017 10:02-0400 Body height 155.57 cm Carline Scales RN [facility] [employer] [facility] [place], Inc.; [facility] [place] [facility] [place], Inc. 06-18-2017 10:02-0400 Body mass index (BMI) [Ratio] 38.04 kg/m2 Carline Scales RN [facility] [employer] [facility] [place], Inc.; [facility] [employer], [employer] 06-18-2017 10:02-0400 Body surface area Derived from formula 1.91 m2 Carline Scales RN [facility] [employer] [facility] [place], Inc.; [facility] [employer], [employer]. 06-18-2017 10:02-0400 Body temperature 97.6 [degF] Carline Scales RN [facility] [place], Inc.; [facility] [employer], [employer]. 06-18-2017 10:02-0400 Body weight 92.08 kg Carline Scales RN [facility] [place], Inc.; [facility] [place], Inc. 06-18-2017 10:02-0400 Diastolic blood pressure 81 mm[Hg] Carline Scales RN [facility], Inc.; [facility] [place], Inc. 06-18-2017 10:02-0400 Heart rate 76 /min Carline Scales RN [facility] [place], Inc.; [facility] [place], Inc. 06-18-2017 10:02-0400 Systolic blood pressure 149 mm[Hg] Carline Scales RN [facility] [place], Inc.; [facility] [place], Inc. 03-29-2017 13:05-0400 Body height 155.57 cm Marita Guzmán RN [facility] [place], Inc.; [facility] [place], Inc. 03-29-2017 13:05-0400 Body mass index (BMI) [Ratio] 38.04 kg/m2 Marita Guzmán RN [facility] [place], Inc.; [facility] [place], Inc. 03-29-2017 13:05-0400 Body surface area Derived from formula 1.91 m2 Marita Guzmán RN [facility] [place], Inc.; [facility] [place], Inc. 03-29-2017 13:05-0400 Body temperature 97.9 [degF] Marita Guzmán RN [facility] [place], Inc.; [facility] [place], Inc. 03-29-2017 13:05-0400 Body weight 92.08 kg Marita Guzmán RN [facility] [place], Inc.; [facility] [place], Inc. 03-29-2017 13:05-0400 Diastolic blood pressure 73 mm[Hg] Marita Guzmán RN [facility] [place], Inc.; [facility] [place], Inc. 03-29-2017 13:05-0400 Heart rate 67 /min Marita Guzmán RN [facility] [place], Inc.; [facility] [employer] [facility] [place], Inc. 03-29-2017 13:05-0400 Systolic blood pressure 122 mm[Hg] Marita Guzmán RN [facility] [place], Inc.; [facility] [employer] [facility] [place], Inc. 10-23-2016 18:25-0500 Body height 157.48 cm Carline Scales RN [facility] [place], [employer] [facility] [place], Inc. 10-23-2016 18:25-0500 Body mass index (BMI) [Ratio] 36.4 kg/m2 Carline Scales RN [facility] [employer] [facility] [place], Inc.; [facility] [place], Inc. 10-23-2016 18:25-0500 Body surface area Derived from formula 1.91 m2 Carline Scales RN [facility] [facility] [place], Inc.; [facility] [employer] [facility] [place], Inc. 10-23-2016 18:25-0500 Body temperature 98 [degF] Carline Scales RN [facility] [place], [employer].; [facility] [place], Inc. 10-23-2016 18:25-0500 Body weight 90.27 kg Carline Scales RN [facility] [place], [employer].; [facility] [facility] [place], Inc. 10-23-2016 18:25-0500 Diastolic blood pressure 81 mm[Hg] Carline Scales RN [facility] [place], [employer].; [facility] [employer] [facility] [place], Inc. 10-23-2016 18:25-0500 Heart rate 76 /min Carline Scales RN [facility] [place], [employer].; [facility] [facility] [place], Inc. 10-23-2016 18:25-0500 Inhaled oxygen concentration 21 % Carline Scales RN [facility] [facility] [place], [employer].; [facility] [place], Inc. 10-23-2016 18:25-0500 SaO2% (BldA) [Mass fraction] 96 % Carline Scales RN [facility] [place] [employer] [facility] [place], [employer]. 10-23-2016 18:25-0500 Systolic blood pressure 149 mm[Hg] Carline Scales RN [facility] [facility] [place], Inc.; [facility] [facility] [place], Inc. 09-21-2016 13:16-0500 Body height 157.48 cm Marita Guzmán RN [facility] [facility] [place] [employer] [place], [facility] 09-21-2016 13:16-0500 Body mass index (BMI) [Ratio] 36.69 kg/m2 Marita Guzmán RN [facility], Inc.; [employer] [facility] [employer] [facility] [place], Inc. 09-21-2016 13:16-0500 Body surface area Derived from formula 1.91 m2 Marita Guzmán RN [facility], Inc.; [employer] [facility] [facility] [place], Inc. 09-21-2016 13:16-0500 Body temperature 98 [degF] Marita Guzmán RN [facility], Inc.; [employer] [facility] [place], Inc. 09-21-2016 13:16-0500 Body weight 90.99 kg Marita Guzmán RN [facility], Inc.; [facility] [facility] [place], Inc. 09-21-2016 13:16-0500 Diastolic blood pressure 72 mm[Hg] Marita Guzmán RN [facility] [place], Inc.; [employer] [facility] [place], [employer]. 09-21-2016 13:16-0500 Heart rate 77 /min Marita Guzmán RN [facility] [place], Inc.; [facility] [facility] [place], [employer]. 09-21-2016 13:16-0500 Systolic blood pressure 118 mm[Hg] Marita Guzmán RN [facility] [place], Inc.; [employer] [facility] [facility] [place], Inc. 03-26-2016 10:36-0400 Body height 157.48 cm Liliana Winchester RN [facility] [place], Inc.; [facility] [facility] [place], [employer]. 03-26-2016 10:36-0400 Body mass index (BMI) [Ratio] 35.85 kg/m2 Liliana Winchester RN [facility] [place], Inc.; [employer] [facility] [employer], [employer]. 03-26-2016 10:36-0400 Body surface area Derived from formula 1.9 m2 Liliana Winchester RN [facility] [place], Inc.; [employer] [facility] [employer], Inc[employer] 03-26-2016 10:36-0400 Body weight 88.91 kg Liliana Winchester RN [facility] [place], Inc.; [employer] [facility] [employer], [employer]. 03-26-2016 10:36-0400 Diastolic blood pressure 64 mm[Hg] Lilaina Winchester RN [facility] [place], Inc.; [facility] [employer] [facility] [place], Inc. 03-26-2016 10:36-0400 Heart rate 65 /min Liliana Winchester RN [facility] [place], Inc.; [facility] [facility] [place], Inc. 03-26-2016 10:36-0400 Systolic blood pressure 101 mm[Hg] Liliana Winchester RN [facility] [place], Inc.; [facility] [place], Inc. 10-14-2015 10:03-0500 Body height 157.48 cm Marita Guzmán RN [facility] [place], Inc.; [facility] [place], Inc. 10-14-2015 10:03-0500 Body mass index (BMI) [Ratio] 35.67 kg/m2 Marita Guzmán RN [facility], Inc.; [facility] [place], Inc. 10-14-2015 10:03-0500 Body surface area Derived from formula 1.89 m2 Marita Guzmán RN [facility] [place], Inc.; [facility] [employer] [facility] [place], Inc. 10-14-2015 10:03-0500 Body temperature 98.2 [degF] Marita Guzmán RN [facility] [place], Inc.; [facility] [place], Inc. 10-14-2015 10:03-0500 Body weight 88.45 kg Marita Guzmán RN [facility] [place], Inc.; [facility] [employer] [facility] [place], Inc. 10-14-2015 10:03-0500 Diastolic blood pressure 70 mm[Hg] Marita Guzmán RN [facility] [place], Inc.; [facility] [employer] [facility] [place], Inc. 10-14-2015 10:03-0500 Heart rate 73 /min Marita Guzmán RN [facility] [place], Inc.; [facility] [employer] [facility] [place], Inc. 10-14-2015 10:03-0500 Systolic blood pressure 117 mm[Hg] Marita Guzmán RN [facility] [place], Inc.; [facility] [facility] [place], Inc. 10-09-2015 13:04-0500 Body height 157.48 cm Liliana Winchester RN [facility] [place], Inc.; [facility] [facility] [place], Inc. 10-09-2015 13:04-0500 Body mass index (BMI) [Ratio] 35.48 kg/m2 Liliana Winchester RN [facility] [place], Inc.; [facility] [place], Inc. 10-09-2015 13:04-0500 Body surface area Derived from formula 1.89 m2 Liliana Winchester RN [facility] [place], Inc.; [facility] [place], Inc. 10-09-2015 13:04-0500 Body temperature 97.8 [degF] Liliana Winchester RN [facility] [place], Inc.; [facility] [place], Inc. 10-09-2015 13:04-0500 Body weight 88 kg Liliana Winchester RN [facility] [place], Inc.; [facility] [place], Inc. 10-09-2015 13:04-0500 Diastolic blood pressure 78 mm[Hg] Liliana Winchester RN [facility] [place], Inc.; [facility] [place], Inc. 10-09-2015 13:04-0500 Heart rate 82 /min Liliana Winchester RN [facility] [place], Inc.; [facility] [place], Inc. 10-09-2015 13:04-0500 Systolic blood pressure 131 mm[Hg] Liliana Winchester RN [facility] [place], Inc.; [facility] [place], Inc. 09-05-2015 13:31-0500 Body height 154.94 cm Carline Scales RN [facility] [place], Inc.; [facility] [place], Inc. 09-05-2015 13:31-0500 Body mass index (BMI) [Ratio] 35.9 kg/m2 Carline Scales RN [facility] [place], Inc.; [facility] [place], Inc. 09-05-2015 13:31-0500 Body surface area Derived from formula 1.85 m2 Carline Scales RN [facility] [place], Inc.; [facility] [employer] [facility] [place], Inc. 09-05-2015 13:31-0500 Body weight 86.18 kg Carline Scales RN [facility] [place], Inc.; [facility] [place], Inc. 09-05-2015 13:31-0500 Diastolic blood pressure 78 mm[Hg] Carline Scales RN [facility], Inc.; [facility], Inc[facility] 09-05-2015 13:31-0500 Heart rate 62 /min Carline Scales RN [facility], Inc.; [facility], Inc[facility] 09-05-2015 13:31-0500 Systolic blood pressure 138 mm[Hg] Carline Scales RN [facility], Inc.; [facility], Inc[facility] 07-04-2015 14:15-0400 Body height 158.75 cm Liliana Winchester RN [facility], Inc.; [facility], Inc[facility] 07-04-2015 14:15-0400 Body mass index (BMI) [Ratio] 34.2 kg/m2 Liliana Winchester RN [facility], Inc.; [facility], Inc[facility] 07-04-2015 14:15-0400 Body surface area Derived from formula 1.88 m2 Liliana Winchester RN [facility], Inc.; [facility], Inc[facility] 07-04-2015 14:15-0400 Body temperature 97.4 [degF] Liliana Winchester RN [facility], Inc.; [facility], Inc[facility] 07-04-2015 14:15-0400 Body weight 86.18 kg Liliana Winchester RN [facility], Inc.; [facility], Inc[facility] 07-04-2015 14:15-0400 Diastolic blood pressure 77 mm[Hg] Liliana Winchester RN [facility] [place], Inc.; [facility] [place], Inc. 07-04-2015 14:15-0400 Heart rate 73 /min Liliana Winchester RN [facility], Inc.; [facility] [place], Inc. 07-04-2015 14:15-0400 Systolic blood pressure 145 mm[Hg] Liliana Winchester RN [facility] [place], Inc.; [facility] [place], Inc. 07-01-2015 15:45-0400 Body height 158.75 cm Liliana Winchester RN [facility] [place] [employer] [facility] [place], Inc[facility] 07-01-2015 15:45-0400 Body mass index (BMI) [Ratio] 34.2 kg/m2 Liliana Winchester RN [facility] [employer] [facility] [place], [employer] [facility], Inc[facility] 07-01-2015 15:45-0400 Body surface area Derived from formula 1.88 m2 Liliana Winchester RN [facility] [employer] [facility] [place], Inc.; [facility], [facility]. 07-01-2015 15:45-0400 Body weight 86.18 kg Liliana Winchester RN [facility] [place] [employer] [facility].; [facility] [place], [facility]. 07-01-2015 15:45-0400 Diastolic blood pressure 85 mm[Hg] Liliana Winchester RN [facility] [facility] [place] [employer] [facility].; [facility] [place], [facility]. 07-01-2015 15:45-0400 Heart rate 68 /min Liliana Winchester RN [facility] [facility] [place] [employer] [facility] [place], [facility]. 07-01-2015 15:45-0400 Systolic blood pressure 144 mm[Hg] Liliana Winchester RN [facility] [place] [employer] [facility] [place], [facility]. 06-08-2015 08:50-0400 Body height 158.75 cm Carline Scales RN [facility] [place] [employer] [facility] [place], [employer] 06-08-2015 08:50-0400 Body mass index (BMI) [Ratio] 35.64 kg/m2 Carline Scales RN [facility] [facility] [place] [employer] [facility] [place], Inc[facility] 06-08-2015 08:50-0400 Body surface area Derived from formula 1.91 m2 Carline Scales RN [facility] [place] [employer].; [facility] [place], [facility]. 06-08-2015 08:50-0400 Body temperature 97.5 [degF] Carline Scales RN [facility] [place] [employer] [place], Inc[facility] 06-08-2015 08:50-0400 Body weight 89.81 kg Carline Scales RN [facility] [place] [employer] [place], [employer] 06-08-2015 08:50-0400 Diastolic blood pressure 85 mm[Hg] Carline Scales RN [facility] [place], Inc.; [facility] [place], Inc. 06-08-2015 08:50-0400 Heart rate 65 /min Carline Scales RN [facility], Inc.; [facility] [place], Inc[facility] 06-08-2015 08:50-0400 Systolic blood pressure 145 mm[Hg] Carline Scales RN [facility] [place], Inc.; [facility] [place], Inc[facility] 04-18-2015 10:09-0400 Body height 158.75 cm Marita Guzmán RN [facility] [place], Inc.; [facility] [place], Inc[facility] 04-18-2015 10:09-0400 Body mass index (BMI) [Ratio] 35.82 kg/m2 Marita Guzmán RN [facility] [place], Inc.; [facility] [place], Inc. 04-18-2015 10:09-0400 Body surface area Derived from formula 1.92 m2 Marita Guzmán RN [facility] [place], Inc.; [facility] [place], Inc. 04-18-2015 10:09-0400 Body temperature 97.7 [degF] Marita Guzmán RN [facility] [place], Inc.; [facility] [place], Inc. 04-18-2015 10:09-0400 Body weight 90.27 kg Marita Guzmán RN [facility] [place], Inc.; [facility] [place], Inc. 04-18-2015 10:09-0400 Diastolic blood pressure 75 mm[Hg] Marita Guzmán RN [facility] [place], Inc.; [facility] [place], Inc. 04-18-2015 10:09-0400 Heart rate 71 /min Marita Guzmán RN [facility] [place], Inc.; [facility] [place], Inc. 04-18-2015 10:09-0400 Systolic blood pressure 115 mm[Hg] Marita Guzmán RN [facility] [place], Inc.; [facility] [place], Inc. 12-10-2014 11:27-0400 Body height 160.02 cm Marita Guzmán RN [facility], Inc.; [facility], Inc[facility] 12-10-2014 11:27-0400 Body mass index (BMI) [Ratio] 35.07 kg/m2 Marita Guzmán RN [facility], Inc.; [facility], Inc[facility] 12-10-2014 11:27-0400 Body surface area Derived from formula 1.93 m2 Marita Guzmán RN [facility], Inc.; [facility], Inc[facility] 12-10-2014 11:27-0400 Body temperature 98.1 [degF] Marita Guzmán RN [facility], Inc.; [facility], [facility] 12-10-2014 11:27-0400 Body weight 89.81 kg Marita Guzmán RN [facility], [facility].; [facility], [facility] 12-10-2014 11:27-0400 Diastolic blood pressure 66 mm[Hg] Marita Guzmán RN [facility], Inc.; [facility], Inc[facility] 12-10-2014 11:27-0400 Heart rate 72 /min Marita Guzmán RN [facility], Inc.; [facility], [facility] 12-10-2014 11:27-0400 Systolic blood pressure 109 mm[Hg] Marita Guzmán RN [facility], Inc.; [facility], Inc[facility] 11-15-2014 09:47-0500 Body height 104.14 cm Carline Scales RN [facility], Inc.; [facility], Inc[facility] 11-15-2014 09:47-0500 Body mass index (BMI) [Ratio] 82.39 kg/m2 Carline Scales RN [facility] [place], Inc.; [facility], Inc[facility] 11-15-2014 09:47-0500 Body surface area Derived from formula 1.41 m2 Carline Scales RN [facility] [place], Inc.; [facility] [place], Inc. 11-15-2014 09:47-0500 Body temperature 98 [degF] Carline Scales RN [facility], Inc.; [facility], Inc[facility] 11-15-2014 09:47-0500 Body weight 89.36 kg Carline Scales RN [facility], [facility].; [facility], Inc[facility] 11-15-2014 09:47-0500 Diastolic blood pressure 70 mm[Hg] Carline Scales RN [facility], [facility].; [facility], Inc[facility] 11-15-2014 09:47-0500 Heart rate 73 /min Carline Scales RN [facility], Inc.; [facility], [facility]. 11-15-2014 09:47-0500 Systolic blood pressure 125 mm[Hg] Carline Scales RN [facility] [place], [facility].; [facility], Inc[facility] 11-08-2014 14:58-0500 Body height 160.02 cm ALESSANDRA Jiménez [facility], Inc.; [facility], [facility]. 11-08-2014 14:58-0500 Body mass index (BMI) [Ratio] 34.54 kg/m2 ALESSANDRA Jiménez [facility], Inc.; [facility], [facility]. 11-08-2014 14:58-0500 Body surface area Derived from formula 1.91 m2 ALESSANDRA Jiménez [facility], [facility].; [facility], Inc[facility] 11-08-2014 14:58-0500 Body weight 88.45 kg ALESSANDRA Jiménez [facility], Inc.; [facility], Inc[facility] 11-08-2014 14:58-0500 Diastolic blood pressure 78 mm[Hg] ALESSANDRA GOVEA [facility] [place], Inc.; [facility], Inc[facility] 11-08-2014 14:58-0500 Heart rate 86 /min ALESSANDRA Jiménez [facility] [place], Inc.; [facility] [place], Inc[facility] 11-08-2014 14:58-0500 Systolic blood pressure 127 mm[Hg] ALESSANDRA Jiménez [facility] [place], Inc.; [facility] [place], [facility]. 10-25-2014 10:46-0500 Body height 160.02 cm Carline Scales RN [facility], Inc.; [facility], Inc[facility] 10-25-2014 10:46-0500 Body mass index (BMI) [Ratio] 35.78 kg/m2 Carline Scales RN [facility], Inc.; [facility], Inc[facility] 10-25-2014 10:46-0500 Body surface area Derived from formula 1.94 m2 Carline Scales RN [facility], Inc.; [facility], Inc[facility] 10-25-2014 10:46-0500 Body weight 91.63 kg Carline Scales RN [facility], Inc.; [facility], Inc[facility] 10-25-2014 10:46-0500 Diastolic blood pressure 81 mm[Hg] Carline Scales RN [facility], Inc.; [facility], Inc[facility] 10-25-2014 10:46-0500 Heart rate 66 /min Carline Scales RN [facility], [facility].; [facility], [facility] 10-25-2014 10:46-0500 Systolic blood pressure 156 mm[Hg] Carline Scales RN [facility], Inc.; [facility], [facility] 09-13-2014 14:29-0500 Body height 160.02 cm Carline Scales RN [facility], [facility].; [facility], [facility] 09-13-2014 14:29-0500 Body mass index (BMI) [Ratio] 35.34 kg/m2 Carline Scales RN [facility], [facility].; [facility], [facility] 09-13-2014 14:29-0500 Body surface area Derived from formula 1.93 m2 Carline Scales RN [facility], Inc.; [facility] [place], Inc. 09-13-2014 14:29-0500 Body weight 90.49 kg Carline Scales RN [facility], [facility].; [facility] [place], Inc. 09-13-2014 14:29-0500 Diastolic blood pressure 78 mm[Hg] Carline Scales RN [facility], [facility].; [facility], [facility] 09-13-2014 14:29-0500 Heart rate 68 /min Carline Scales RN [facility], [facility].; [facility], [facility] 09-13-2014 14:29-0500 Systolic blood pressure 123 mm[Hg] Carline Scales RN [facility], [facility].; [facility], [facility] 04-05-2014 08:52-0400 Body height 157.48 cm ALESSANDRA Jiménez [facility] [place], Inc.; [facility], [facility] 04-05-2014 08:52-0400 Body mass index (BMI) [Ratio] 35.3 kg/m2 ALESSANDRA Jiménez [facility] [place], Inc.; [facility], [facility]. 04-05-2014 08:52-0400 Body surface area Derived from formula 1.88 m2 ALESSANDRA Jiménez [facility] [place], Inc.; [facility] [place], Inc. 04-05-2014 08:52-0400 Body weight 87.54 kg ALESSANDRA Jiménez [facility] [place], Inc.; [facility], Inc[facility] 04-05-2014 08:52-0400 Diastolic blood pressure 77 mm[Hg] ALESSANDRA Jiménez [facility] [place], Inc.; [facility] [place], Inc. 04-05-2014 08:52-0400 Heart rate 64 /min ALESSANDRA Jiménez [facility] [place], Inc.; [facility] [place], Inc. 04-05-2014 08:52-0400 Systolic blood pressure 121 mm[Hg] ALESSANDRA Jiménez [facility] [place], Inc.; [facility] [place], Inc. 10-26-2013 13:38-0500 Body height 157.48 cm ALESSANDRA Jiménez [facility] [place], Inc.; [facility] [place], Inc. 10-26-2013 13:38-0500 Body mass index (BMI) [Ratio] 35.67 kg/m2 ALESSANDRA Jiménez [facility] [place], Inc.; [place] [facility] [employer] [employer] 10-26-2013 13:38-0500 Body surface area Derived from formula 1.89 m2 GEORGITeja Jiménez [employer] [facility] [employer] [facility] [employer] [facility] [place], Inc. 10-26-2013 13:38-0500 Body weight 88.45 kg ALESSANDRA Jiménez [employer] [facility] [place], Inc.; [facility] [place], Inc. 10-26-2013 13:38-0500 Diastolic blood pressure 84 mm[Hg] ALESSANDRA Jiménez [employer] [facility] [place], Inc.; [facility] [place], Inc. 10-26-2013 13:38-0500 Heart rate 73 /min GEORGITeja Jiménez [employer] [facility] [place], Inc.; [facility] [place], Inc. 10-26-2013 13:38-0500 Systolic blood pressure 144 mm[Hg] ALESSANDRA Jiménez [employer] [facility] [place], Inc.; [facility] [place], Inc. 10-12-2013 08:55-0500 Body height 157.48 cm ALESSANDRA Jiménez [employer] [facility] [employer] [facility].; [facility] [place], Inc. 10-12-2013 08:55-0500 Body mass index (BMI) [Ratio] 35.85 kg/m2 GEORGITeja Jiménez [employer] [facility] [employer] [facility].; [facility] [place], Inc. 10-12-2013 08:55-0500 Body surface area Derived from formula 1.9 m2 ALESSANDRA Jiménez [employer] [facility] [place], Inc.; [facility] [place], Inc. 10-12-2013 08:55-0500 Body weight 88.91 kg ALESSANDRA Jiménez [employer] [facility] [employer] [facility].; [facility] [place], Inc. 10-12-2013 08:55-0500 Diastolic blood pressure 78 mm[Hg] GEORGITeja Jiménez [employer] [facility] [place], Inc.; [facility] [place], Inc. 10-12-2013 08:55-0500 Heart rate 107 /min ALESSANDRA Jiménez [employer] [facility] [place], Inc.; [facility] [place], Inc. 10-12-2013 08:55-0500 Systolic blood pressure 126 mm[Hg] ALESSANDRA Jiménez [employer] [facility] [place], Inc.; [facility], Inc[facility] 04-17-2013 10:09-0400 Body height 157.48 cm Carline Scales RN [facility], [facility].; [facility], Inc[facility] 04-17-2013 10:09-0400 Body mass index (BMI) [Ratio] 35.67 kg/m2 Carline Scales RN [facility], [facility].; [facility], [facility] 04-17-2013 10:09-0400 Body surface area Derived from formula 1.89 m2 Carline Scales RN [facility], [facility].; [facility], [facility] 04-17-2013 10:09-0400 Body weight 88.45 kg Carline Scales RN [facility], [facility].; [facility], [facility] 04-17-2013 10:09-0400 Diastolic blood pressure 81 mm[Hg] Carline Scales RN [facility], [facility].; [facility], [facility] 04-17-2013 10:09-0400 Heart rate 73 /min Carline Scales RN [facility], [facility].; [facility], [facility]. 04-17-2013 10:09-0400 Systolic blood pressure 125 mm[Hg] Carline Scales RN [facility], [facility].; [facility], [facility] 10-24-2012 10:05-0500 Body height 157.48 cm Marita Guzmán RN [facility], [facility].; [facility], [facility] 10-24-2012 10:05-0500 Body mass index (BMI) [Ratio] 35.85 kg/m2 Marita Guzmán RN [facility], [facility].; [facility], [facility] 10-24-2012 10:05-0500 Body surface area Derived from formula 1.9 m2 Marita Guzmán RN [facility], Inc.; [facility], [facility] 10-24-2012 10:05-0500 Body temperature 98 [degF] Marita Guzmán RN [facility], Inc.; [facility] [place] [employer]. 10-24-2012 10:05-0500 Body weight 88.91 kg Marita Guzmán RN [facility] [place] [employer].; [facility]. 10-24-2012 10:05-0500 Diastolic blood pressure 85 mm[Hg] Marita Guzmán RN [facility] [place] [employer].; [facility] [place] [employer]. 10-24-2012 10:05-0500 Heart rate 76 /min Marita Guzmán RN [facility] [place] [employer].; [facility] [place] [employer]. 10-24-2012 10:05-0500 Systolic blood pressure 133 mm[Hg] Marita Guzmán RN [facility] [place].; [facility] [place] [employer]. 09-17-2012 10:15-0500 Body height 157.48 cm Khurram KELLEY MD Work Phone: [facility] [place] [employer].; [facility] [place] [employer]. 09-17-2012 10:15-0500 Body mass index (BMI) [Ratio] 35.3 kg/m2 Khurram KELLEY MD Work Phone: [facility] [place] [employer].; [facility] [place] [employer]. 09-17-2012 10:15-0500 Body surface area Derived from formula 1.88 m2 Khurram KELLEY MD Work Phone: [facility] [place] [employer].; [facility] [place] [employer]. 09-17-2012 10:15-0500 Body temperature 98.4 [degF] Khurram KELLEY MD Work Phone: [facility] [place] [employer].; [facility] [place] [employer]. 09-17-2012 10:15-0500 Body weight 87.54 kg Khurram KELLEY MD Work Phone: [facility].; [facility] [place] [employer]. 09-17-2012 10:15-0500 Diastolic blood pressure 72 mm[Hg] Khurram KELLEY MD Work Phone: [facility] [place] [employer].; [facility] [place], Inc. 09-17-2012 10:15-0500 Heart rate 81 /min Khurram KELLEY MD Work Phone: [facility], [facility] 09-17-2012 10:15-0500 Systolic blood pressure 111 mm[Hg] Khurram KELLEY MD Work Phone: [facility] [employer] [facility].; [facility] [place], Inc. 07-18-2012 09:06-0400 Body height 157.48 cm Marita Guzmán RN [facility] [place], Inc.; [facility] [place], Inc. 07-18-2012 09:06-0400 Body mass index (BMI) [Ratio] 35.85 kg/m2 Marita Guzmán RN [facility] [place], Inc.; [facility] [place], Inc. 07-18-2012 09:06-0400 Body surface area Derived from formula 1.9 m2 Marita Guzmán RN [facility] [place], Inc.; [facility] [place], Inc. 07-18-2012 09:06-0400 Body temperature 98.1 [degF] Marita Guzmán RN [facility] [place], Inc.; [facility] [place], Inc. 07-18-2012 09:06-0400 Body weight 88.91 kg Marita Guzmán RN [facility] [place], Inc.; [facility] [place], Inc. 07-18-2012 09:06-0400 Diastolic blood pressure 74 mm[Hg] Marita Guzmán RN [facility] [place], Inc.; [facility] [place], Inc. 07-18-2012 09:06-0400 Heart rate 60 /min Marita Guzmán RN [facility] [place], Inc.; [facility] [place], Inc. 07-18-2012 09:06-0400 Systolic blood pressure 114 mm[Hg] Marita Guzmán RN [facility] [place], Inc.; [facility] [place], Inc. 05-30-2012 10:38-0400 Body height 157.48 cm Carline Scales [facility] [employer] [facility] 05-30-2012 10:38-0400 Body mass index (BMI) [Ratio] 35.67 kg/m2 [facility].; [facility], [facility] 05-30-2012 10:38-0400 Body surface area Derived from formula 1.89 m2 Carline Scales RN [facility] [place], Inc.; [facility], [facility]. 05-30-2012 10:38-0400 Body temperature 98.3 [degF] Carline Scales RN [facility] [employer] [facility].; [facility], [facility]. 05-30-2012 10:38-0400 Body weight 88.45 kg Carline Scales RN [facility] [employer] [facility].; [facility], [facility]. 05-30-2012 10:38-0400 Diastolic blood pressure 80 mm[Hg] Carline Scales RN [facility] [employer] [facility].; [facility], [facility]. 05-30-2012 10:38-0400 Heart rate 73 /min Carline Scales RN [facility] [place] [employer].; [facility]. 05-30-2012 10:38-0400 Systolic blood pressure 121 mm[Hg] Carline Scales RN [facility] [employer] [facility].; [facility] [place] [employer] [facility]. 03-10-2012 09:04-0400 Body height 157.48 cm Carline Scales RN [facility] [employer] [facility].; [facility] [place], [facility]. 03-10-2012 09:04-0400 Body mass index (BMI) [Ratio] 36.03 kg/m2 Carline Scales RN [facility] [facility] [place] [employer].; [facility] [place], [facility]. 03-10-2012 09:04-0400 Body surface area Derived from formula 1.9 m2 Carline Scales RN [facility] [facility] [place], Inc.; [facility] [place] [employer]. 03-10-2012 09:04-0400 Body weight 89.36 kg [facility].; [facility], [facility]. 03-10-2012 09:04-0400 Diastolic blood pressure 82 mm[Hg] [facility]line Scal[facility].; [facility], [facility] 03-10-2012 09:04-0400 Heart rate 69 /min [facility] Scal[facility], [facility]. 03-10-2012 09:04-0400 Systolic blood pressure 128 mm[Hg] Carline Scales RN [facility] [place] [employer] [facility].; [facility], [facility]. 02-12-2012 09:55-0400 Body height 157.48 cm Khurram KELLEY MD Work Phone: [facility] [place] [employer].; [facility] [facility]. 02-12-2012 09:55-0400 Body mass index (BMI) [Ratio] 35.48 kg/m2 Khurram KELLEY MD Work Phone: [facility] [place] [employer].; [facility], [facility]. 02-12-2012 09:55-0400 Body surface area Derived from formula 1.89 m2 Khurram KELLEY MD Work Phone: [facility] [place] [employer].; [facility] [place] [employer] [facility]. 02-12-2012 09:55-0400 Body temperature 98.3 [degF] Khurram KELLEY MD Work Phone: [facility] [place] [employer].; [facility] [place], [facility]. 02-12-2012 09:55-0400 Body weight 88 kg Khurram KELLEY MD Work Phone: [facility] [place] [employer].; [facility] [place], [facility]. 02-12-2012 09:55-0400 Diastolic blood pressure 77 mm[Hg] Khurram KELLEY MD Work Phone: [facility] [place] [employer].; [facility]. 02-12-2012 09:55-0400 Heart rate 82 /min Khurram KELLEY MD Work Phone: [facility] [place] [employer].; [facility], [facility]. 02-12-2012 09:55-0400 Systolic blood pressure 129 mm[Hg] Khurram KELLEY MD Work Phone: [facility] [place] [employer].; [facility] [employer] 02-09-2012 10:28-0400 Body height 157.48 cm Liliana Winchester RN [facility] [place], [employer].; [facility] [place], Inc[facility] 02-09-2012 10:28-0400 Body mass index (BMI) [Ratio] 35.67 kg/m2 Liliana Winchester RN [facility] [place] [employer].; [facility] [place], [employer]. 02-09-2012 10:28-0400 Body surface area Derived from formula 1.89 m2 Liliana Winchester RN [facility] [place], [employer] [facility], [facility]. 02-09-2012 10:28-0400 Body temperature 97.9 [degF] Liliana Winchester RN [facility] [place] [employer].; [facility] [place], [facility]. 02-09-2012 10:28-0400 Body weight 88.45 kg Liliana Winchester RN [facility] [place], [employer].; [facility] [place], Inc[facility] 02-09-2012 10:28-0400 Diastolic blood pressure 81 mm[Hg] Liliana Winchester RN [facility] [place], Inc.; [facility] [place], [facility]. 02-09-2012 10:28-0400 Heart rate 84 /min Liliana Winchester RN [facility] [place], [employer].; [facility] [place], [employer]. 02-09-2012 10:28-0400 Systolic blood pressure 128 mm[Hg] Liliana Winchester RN [facility] [place], [employer].; [facility] [place], Inc. 01-25-2012 13:12-0400 Body height 157.48 cm Carline Scales RN [facility] [place] [employer].; [facility] [place], [employer]. 01-25-2012 13:12-0400 Body mass index (BMI) [Ratio] 36.03 kg/m2 Carline Scales RN [facility], [facility].; [facility]. 01-25-2012 13:120400 Body surface area Derived from formula 1.9 m2 Carline Scales RN [facility], [facility].; [facility], [facility]. 01-25-2012 13:12-0400 Body temperature 97.9 [degF] Carline Scales RN [facility], [facility].; [facility], [facility]. 01-25-2012 13:120400 Body weight 89.36 kg Carline Scales RN [facility], [facility].; [facility]. 01-25-2012 13:120400 Diastolic blood pressure 79 mm[Hg] Carline Scales RN [facility], [facility].; [facility]. 01-25-2012 13:12-0400 Heart rate 78 /min Carline Scales RN [facility], [facility].; [facility]. 01-25-2012 13:12-0400 Systolic blood pressure 126 mm[Hg] Carline Scales RN [facility], [facility].; [facility], [facility]. 11-05-2011 10:16-0500 Body height 157.48 cm Carline Scales RN [facility], [facility].; [facility]. 11-05-2011 10:16-0500 Body mass index (BMI) [Ratio] 36.4 kg/m2 Carline Scales RN [facility], [facility].; [facility]. 11-05-2011 10:16-0500 Body surface area Derived from formula 1.91 m2 Carline Scales RN [facility], [facility].; [facility], [facility]. 11-05-2011 10:16-0500 Body weight 90.27 kg Carline Scales RN [facility], [facility].; [facility], [facility]. 11-05-2011 10:16-0500 Diastolic blood pressure 83 mm[Hg] Carline Scales RN [facility] [employer] [facility] [place], Inc.; [facility] 11-05-2011 10:16-0500 Heart rate 75 /min Carline Scales RN [facility], [facility].; [facility], [facility] 11-05-2011 10:16-0500 Systolic blood pressure 138 mm[Hg] Carline Scales RN [facility] [place], Inc.; [facility], [facility] 10-05-2011 10:12-0500 Body height 157.48 cm Carline Scales RN [facility], [facility], [facility] 10-05-2011 10:12-0500 Body mass index (BMI) [Ratio] 37.68 kg/m2 Carline Scales RN [facility] [employer] [facility] [place], Inc.; [facility], [facility]. 10-05-2011 10:12-0500 Body surface area Derived from formula 1.94 m2 Carline Scales RN [facility] [employer] [facility] [place], [facility].; [facility], [facility]. 10-05-2011 10:12-0500 Body temperature 97.4 [degF] Carline Scales RN [facility] [place], [employer].; [facility] [place], Inc. 10-05-2011 10:12-0500 Body weight 93.44 kg Carline Scales RN [facility] [place], Inc.; [facility], Inc[facility] 10-05-2011 10:12-0500 Diastolic blood pressure 84 mm[Hg] Carline Scales RN [facility] [employer] [facility] [place], Inc.; [facility] [place], [facility]. 10-05-2011 10:12-0500 Heart rate 94 /min Carline Scales RN [facility] [place], Inc.; [facility] [place], Inc. 10-05-2011 10:12-0500 Systolic blood pressure 153 mm[Hg] Carline Scales RN [facility] [employer] [facility] [place], Inc.; [facility] [place], [facility]. 08-10-2011 14:44-0500 Body height 157.48 cm Carline Scales RN [facility], [facility].; [facility], [facility]. 08-10-2011 14:44-0500 Body mass index (BMI) [Ratio] 36.4 kg/m2 Carline Scales RN [facility], [facility].; [facility], [facility] 08-10-2011 14:44-0500 Body surface area Derived from formula 1.91 m2 Carline Scales RN [facility], [facility].; [facility], [facility] 08-10-2011 14:44-0500 Body weight 90.27 kg Carline Scales RN [facility], [facility].; [facility], [facility]. 08-10-2011 14:44-0500 Diastolic blood pressure 82 mm[Hg] Carline Scales RN [facility], [facility].; [facility], [facility]. 08-10-2011 14:44-0500 Heart rate 90 /min Carline Scales RN [facility], [facility].; [facility], [facility]. 08-10-2011 14:44-0500 Systolic blood pressure 128 mm[Hg] Carline Scales RN [facility], [facility].; [facility], [facility] 07-31-2011 13:33-0400 Body height 157.48 cm ALESSANDRA Jiménez [facility], [facility].; [facility], [facility]. 07-31-2011 13:33-0400 Body mass index (BMI) [Ratio] 36.58 kg/m2 ALESSANDRA Jiménez [facility], [facility].; [facility], [facility]. 07-31-2011 13:33-0400 Body surface area Derived from formula 1.91 m2 ALESSANDRA Jiménez [facility], [facility].; [facility], [facility]. 07-31-2011 13:33-0400 Body temperature 97.4 [degF] ALESSANDRA Jiménez [facility], [facility].; [facility], [facility]. 07-31-2011 13:33-0400 Body weight 90.72 kg ALESSANDRA Jiménez [facility], [facility], [facility]. 07-31-2011 13:33-0400 Diastolic blood pressure 81 mm[Hg] ALESSANDRA Jiménez GOVE[facility] 07-31-2011 13:33-0400 Heart rate 68 /min [facility].; [facility], [facility]. 07-31-2011 13:33-0400 Systolic blood pressure 133 mm[Hg] ALESSANDRA GOVEA [facility], [facility].; [facility], [facility]. 04-23-2011 15:10-0400 Body temperature 98.3 [degF] Carline Scales RN [facility].; [facility], [facility]. 04-23-2011 15:10-0400 Diastolic blood pressure 85 mm[Hg] [facility], [facility]. 04-23-2011 15:10-0400 Heart rate 91 /min Carline Scales RN [facility].; [facility], [facility]. 04-23-2011 15:10-0400 Systolic blood pressure 137 mm[Hg] Carline Scales RN [facility], [facility].; [facility] 04-09-2011 09:30-0400 Body height 157.48 cm ALESSANDRA Jiménez [facility].; [facility], [facility]. 04-09-2011 09:30-0400 Body mass index (BMI) [Ratio] 36.4 kg/m2 [facility], [facility].; [facility], [facility]. 04-09-2011 09:30-0400 Body surface area Derived from formula 1.91 m2 [facility] [employer] [facility].; [facility] [employer] [facility], [facility] 04-09-2011 09:30-0400 Body weight 90.27 kg ALESSANDRA Jiménez [facility], [facility].; [facility], [facility]. 04-09-2011 09:30-0400 Diastolic blood pressure 71 mm[Hg] ALESSANDRA GOVEA [facility] 04-09-2011 09:30-0400 Heart rate 78 /min ALESSANDRA GOVEA [facility] 04-09-2011 09:30-0400 Systolic blood pressure 115 mm[Hg] ALESSANDRA GOVEA [facility] 01-28-2011 08:41-0400 Body temperature 97 [degF] Liliana Winchester RN [facility], [facility].; [facility] 01-28-2011 08:41-0400 Body weight 90.72 kg Liliana Winchester RN [facility], [facility].; [facility] 01-28-2011 08:41-0400 Diastolic blood pressure 76 mm[Hg] Liliana Winchester RN [facility] [place], [facility].; [facility] 01-28-2011 08:41-0400 Heart rate 77 /min Liliana Winchester RN [facility], [facility].; [facility] 01-28-2011 08:41-0400 Systolic blood pressure 115 mm[Hg] Liliana Winchester RN [facility], [facility].; [facility] 12-15-2010 17:05-0400 Body temperature 97.9 [degF] Marita Guzmán RN [facility], [facility].; [facility] [place] 12-15-2010 17:05-0400 Body weight 90.72 kg Marita Guzmán RN [facility], [facility].; [facility] [place], [facility] 12-15-2010 17:05-0400 Diastolic blood pressure 75 mm[Hg] Marita Guzmán RN [facility] [place], [facility].; [facility] [place], [facility] 12-15-2010 17:05-0400 Heart rate 78 /min Marita Guzm[facility] RN [facility] [place], [facility].; [facility] [place], [facility] 12-15-2010 17:05-0400 Systolic blood pressure 127 mm[Hg] Marita Guzmán RN [facility], [facility].; [facility] 11-21-2010 10:04-0500 Body height 158.75 cm Carline Scales RN [facility] 11-21-2010 10:04-0500 Body mass index (BMI) [Ratio] 37.44 kg/m2 Carline Scales RN [facility], [facility].; [facility] [place] 11-21-2010 10:04-0500 Body surface area Derived from formula 1.96 m2 Carline Scales RN [facility] [place], [employer].; [facility], [facility]. 11-21-2010 10:04-0500 Body temperature 97.8 [degF] Carline Scales RN [facility] [employer].; [facility], [facility]. 11-21-2010 10:04-0500 Body weight 94.35 kg Carline Scales RN [facility] [place], [facility].; [facility], [facility]. 11-21-2010 10:04-0500 Diastolic blood pressure 79 mm[Hg] Carline Scales RN [facility] [place], [facility].; [facility] [place], [facility] 11-21-2010 10:04-0500 Heart rate 67 /min Carline Scales RN [facility] [place], [facility].; [facility] [place], [facility]. 11-21-2010 10:04-0500 Systolic blood pressure 127 mm[Hg] Carline Scales RN [facility] [place], [facility].; [facility] [place], [facility]. 08-07-2010 13:04-0400 Body height 158.75 cm Carline Scales RN [facility], [facility].; [facility] [place] 08-07-2010 13:04-0400 Body mass index (BMI) [Ratio] 36.72 kg/m2 Carline Scales RN [facility] [place], [facility].; [facility] [place], [facility] 08-07-2010 13:04-0400 Body surface area Derived from formula 1.94 m2 Carline Scales RN [facility] [place], [employer] [facility] [place], [facility] 08-07-2010 13:04-0400 Body temperature 98 [degF] Carline Scales RN [facility] [place], [facility].; [facility] [place], [facility] 08-07-2010 13:04-0400 Body weight 92.53 kg Carline Scales RN [facility] Aimee [facility] [place], Inc.; [facility] [place], [facility] 08-07-2010 13:04-0400 Diastolic blood pressure 92 mm[Hg] Carline Scales RN [facility].; [facility] [employer] [place], [facility] 08-07-2010 13:04-0400 Heart rate 85 /min Carline Scales RN [facility] Aimee [employer] [place].; [facility] [employer] [place], [facility] 08-07-2010 13:04-0400 Systolic blood pressure 152 mm[Hg] Carline Scales RN [facility].; [employer] [facility] [place], [facility] Encounters Encounter Date Encounter Type Care Provider Facility Start: 11-03-2023 End: 11-04-2023 ambulatory [facility] Facility:[facility] Start: 10-19-2023 End: 10-19-2023 ambulatory Khurram KELLEY [facility] Start: 10-19-2023 End: 10-19-2023 Office outpatient visit 15 minutes Khurram KELLEY MD Work Phone: [facility] [employer] [place], [facility] Start: 08-12-2023 End: 08-13-2023 ambulatory Treatment Rm 12 [facility] Work Phone: Hematology/Oncology Procedures Date Procedure Procedure Detail Performing Clinician Start: 10-19-2023 End: 10-19-2023 Dischrg meds reconciled w/current med list Khurram KELLEY MD Work Phone: Start: 08-30-2023 End: 08-30-2023 Marita Guzmán RN Start: 07-21-2023 End: 07-21-2023 Aiiv4 vacc inactivated prsrv fr 0.5ml dos im use Khurram KELLEY MD Work Phone: Start: 07-21-2023 End: 07-21-2023 Dischrg meds reconciled w/current med list Khurram KELLEY MD Work Phone: Start: 12-29-2022 End: 12-29-2022 Esophagogastroduodenoscopy Khurram Topete MD Work Phone: Start: 10-12-2022 End: 10-12-2022 Dischrg meds reconciled w/current med list Khurram KELLEY MD Work Phone: Start: 09-17-2022 End: 09-17-2022 Ct abdomen & pelvis w/contrast material Khurram KELLEY MD Work Phone: Start: 09-09-2022 End: 09-09-2022 Marita Guzmán RN Start: 05-17-2022 End: 05-17-2022 Khurram KELLEY MD Work Phone: Start: 12-25-2021 End: 12-25-2021 Screening colonoscopy Khurram KELLEY MD Work Phone: Start: 12-02-2021 End: 12-02-2021 Ultrasonography Khurarm KELLEY MD Work Phone: Start: 11-17-2021 End: 11-17-2021 Screening mammography Marita Guzmán RN Start: 09-10-2021 End: 09-10-2021 Dischrg meds reconciled w/current med list DIMAS ZU[employer] Work Phone: Start: 09-01-2021 End: 09-01-2021 Dischrg meds reconciled w/current med list [employer]AS [employer] Work Phone: Start: 04-10-2021 End: 04-10-2021 Marita Guzmán RN Start: 12-14-2020 End: 12-14-2020 Dischrg meds reconciled w/current med list Hernan GOVEA MD Work Phone: Start: 12-11-2020 End: 12-11-2020 Collj & interpj physiol data min 30 min ea 30 d Khurram KELLEY MD Work Phone: Start: 11-27-2020 End: 11-27-2020 Collj & interpj physiol data min 30 min ea 30 d Khurram KELLEY MD Work Phone: Start: 11-27-2020 End: 11-27-2020 Dischrg meds reconciled w/current med list Khurram KELLEY MD Work Phone: Start: 11-04-2020 End: 11-04-2020 Dischrg meds reconciled w/current med list Marita Guzmán RN Start: 08-20-2020 End: 08-20-2020 Dischrg meds reconciled w/current med list Khurram KELLEY MD Work Phone: Start: 08-20-2020 End: 08-20-2020 Marita Guzmán RN Start: 07-24-2020 End: 07-24-2020 Dischrg meds reconciled w/current med list Khurram KELLEY MD Work Phone: Start: 04-25-2020 End: 04-25-2020 Dischrg meds reconciled w/current med list Khurram KELLEY MD Work Phone: Start: 02-07-2020 End: 02-07-2020 Examination of retina Marita Guzmán RN Start: 10-02-2019 End: 10-02-2019 Dischrg meds reconciled w/current med list [employer] Work Phone: Start: 10-02-2019 End: 11-24-2019 Screening mammography bi 2-view breast inc cad DIMAS ZUÑIG[employer] Work Phone: Start: 06-08-2019 End: 06-08-2019 Dischrg meds reconciled w/current med list STEPHANIE BARCLAY MD Work Phone: Start: 03-16-2019 End: 03-16-2019 Dischrg meds reconciled w/current med list STEPHANIE BARCLAY MD Work Phone: Start: 09-29-2018 End: 09-29-2018 Dischrg meds reconciled w/current med list STEPHANIE BARCLAY MD Work Phone: Start: 10-09-2015 End: 10-09-2015 Ceftriaxone sodium injection CROW RODRIGUEZ MD Work Phone: Start: 10-09-2015 End: 10-09-2015 Therapeutic prophylactic/dx injection subq/im CROW SALVADOR MD Work Phone: Start: 07-24-2015 End: 07-24-2015 Nghia KELLEY MD Work Phone: Start: 06-08-2015 End: 06-08-2015 Therapeutic prophylactic/dx injection subq/im STEPHANIE BARCLAY MD Work Phone: Start: 06-08-2015 End: 06-08-2015 Triamcinolone acet inj NOS STEPHANIE BARCLAY MD Work Phone: Start: 05-30-2012 End: 05-30-2012 Therapeutic prophylactic/dx injection subq/im STEPHANIE BARCLAY MD Work Phone: Start: 05-30-2012 End: 05-30-2012 Triamcinolone acet inj NOS STEPHANIE BARCLAY MD Work Phone: Start: 02-13-2012 End: 02-13-2012 Ceftriaxone sodium injection STEPHANIE BARCLAY MD Work Phone: Start: 02-13-2012 End: 02-13-2012 Therapeutic prophylactic/dx injection subq/im STEPHANIE BARCLAY MD Work Phone: Start: 02-12-2012 End: 02-12-2012 Ceftriaxone sodium injection STEPHANIE BARCLAY MD Work Phone: Start: 02-12-2012 End: 02-12-2012 Therapeutic prophylactic/dx injection subq/im STEPHANIE BARCLAY MD Work Phone: Start: 10-05-2011 End: 10-05-2011 Ceftriaxone sodium injection STEPHANIE BARCLAY MD Work Phone: Start: 10-05-2011 End: 10-05-2011 Therapeutic prophylactic/dx injection luisaq/im STEPHANIE BARCLAY MD Work Phone: Start: 04-23-2011 End: 04-23-2011 Therapeutic prophylactic/dx injection subq/im STEPHANIE BARCLAY MD Work Phone: Start: 11-21-2010 End: 11-21-2010 Lab findings surveillance Marita Guzmán RN Start: 12-02-2009 End: 12-02-2009 Screening colonoscopy Marita Guzmán RN Start: 10-08-2009 Colonoscopy Abdirashid Sotelo DO Work Phone: Start: 10-08-2009 Lipid 1996 panel - Serum or Plasma Nathan Johnson MD Work Phone: Start: 10-08-2009 Mammography Abdirashid Sotelo DO Work Phone: Start: 01-03-2008 End: 01-03-2008 Bone density scan Marita Guzmán RN Start: 1994 End: 1994 Total hysterectomy Khurram KELLEY MD Work Phone: Decompression of median nerve Khurram KELLEY MD Work Phone: H/O: surgery [employer] Work Phone: Vaccination given Marita KELLEY MD Work Phone: Marita Guzmán RN Plan of Treatment Date Care Activity Detail Author Start: 06-23-2024 DIABETES SCREEN DIABETES SCREEN [facility] Start: 06-23-2024 Diabetes Screening Diabetes Screenin g [facility] Start: 11-09-2023 [facility]. Start: 10-19-2023 Culture bacterial quanttative colony count [facility] Start: 10-19-2023 Culture bct isol&prsmptv id isolate ea [facility] [employer] [facility], [employer]. Start: 07-21-2023 Culture bct isol&prsmptv id isolate ea urine [facility] [employer] [facility] [employer] [facility] Start: 06-23-2023 End: 08-23-2023 Gdjzo-[id number] [Mass/volume] in Serum or Plasma ALPHA FETOPROTEIN BL Lab Routine Hemochromatosis, hereditary (HCC) Expected: 06/23/2023, Expires: 08/23/2023 [facility] Work Phone: Immunizations Immunization Date Immunization Notes Care Provider Fa cili 08-30-2023 tetanus toxoid, redu sonu diphtheria toxoid, and acellular pertussis vaccine, adsorbed Khurram KELLEY MD Work Phone: [facility] 07-21-2023 influenza virus vaccine, unspecified formulation Khurram KELLEY MD Work [facility]: [facility] 07-21-2023 Khurram KELLEY MD Work Phone: [facility], [employer]. 09-08-2022 influenza, injectabl e, quadrivalent, preservative free Khurram KELLEY MD Work Phone: [facility] 09-08-2022 influenza virus vaccine, unspecified formulation Nathan Johnson MD Work Phone: [facility]. 09-01-2021 unknown vaccine or immune globulin Khurram KELLEY MD Work Phone: [facility] 09-01-2021 influenza, injectabl e, quadrivalent, preservative free Khurarm KELLEY MD Work Phone: [facility] 08-06-2021 pneumococcal Conjuga te, unspecified formulation Khurram KELLEY MD Work Phone: [facility] 08-06-2021 Khurram KELLEY MD Work Phone: [facility] 08-06-2021 pneumococcal polysaccharide vaccine, 23 valent Khurram KELLEY MD Work Phone: [facility] 08-20-2020 TD(adult) unspecifie d formulation Khurram KELLEY MD Work Phone: [facility] 08-20-2020 Khurram KELLEY MD Work Phone: [facility] 10-24-2012 tetanus toxoid, redu sonu diphtheria toxoid, and acellular pertussis vaccine, adsorbed Khurram KELLEY MD Work Phone: [facility] 10-24-2012 Khurram KELLEY MD Work Phone: [facility]; [facility]. 11-21-2010 Khurram KELLEY MD Work Phone: [facility] 11-25-2006 tetanus and diphther ia toxoids, adsorbed, preservative free, for adult use (2 Lf of tetanus toxoid and 2 Lf of diphtheria toxoid) Khurram KELLEY MD Work Phone: [facility]; [facility]. NEGATED: Highlighted row has not occurred!12-27-2018 influenza, seasonal, injectable R STEPHANIE KELLEY MD Work Phone: [facility], [employer] [facility], [facility] Payers Date Payer Category Payer Medicare HU[employer]NA MEDICARE HU[employer]NA MEDICARE PPO [id number] 2021-Present [phone] [address] [place], [place] [id number] PPO [id number] 2021 Medicare HUMANA MEDICARE HU[employer]NA MEDICARE PPO [id number] 2021-Present [phone] [address] [address] [place] [id number] PPO [id number] 2021 Private Health Insurance [id number] 1955 Unknown [id number] 1955 Unknown [id number] 1955 Unknown [id number] 1955 Unknown [id number] Unknown Social History Date Type Detail Facility Start: 06-01-2011 [facility] Work Phone: Start: 10-19-2021 End: 06-23-2023 Alcohol intake Current non-drinker of alcohol (finding) [facility] Start: 1955 Sex Assigned At Not on file C [facility] Start: 06-01-2011 Tobacco use and exposure Smokeless tobacco non-user [facility] Start: 05-22-2022 End: 08-31-2022 Exposure to SARS-CoV-2 (event) Not sure [facility] Start: 06-01-2022 End: 02-08-2023 History of Social function [facility] Start: 06-01-2022 End: 02-08-2023 Tobacco use panel [facility] National Score (1-100), lower number is lower risk 38 [facility] No Alcohol Use. [facility].; [facility] . [facility].; [facility] Never smoker. [facility].; [facility] Clinical Notes 09-29-2010 to 06-23-2023 Nathan Johnson MD - 06/23/2023 9:36 AM Guille Kunz RN - 11/16/2022 8:58 AM ESTTelephone Encounter - Annie Reese Pss - 09/18/2022 11:03 AM Jacy Botello MD - 06/01/2022 9:04 AM EDT Note Date & Type Note Facility 06-23-2023 Note HNO ID: [id number] Author: Nathan Johnson MD Service: ? Author Type: Physician Type: Progress Notes Filed: 06/23/2023 12:04 PM Note Text: HISTORY OF PRESENT ILLNESS: Cami Winchester is a 67 year old female history [facility], dx 20 years ago, gets phlebotomy every 3 months. Labs reviewed CLINICAL IMPRESSION: [facility] RECOMMENDATION/PLAN: 1. Phlebotomy as planned, labs as ordered 2. Back in 1 year Written and verbal health teaching given to patient, patient verbalizes understanding and agrees with treatment plan. PAST MEDICAL HISTORY Diagnosis Date Hypertension 06/04/1980 Other hemochromatosis 2001 Spinal stenosis 12/02/2020 PAST SURGICAL HISTORY Procedure Laterality Date HYSTERECTOMY HX 1990 Vaginal for bleeding from miscarriage, USO OTHER 2010 left ankle torn ligament repair No family history on file. Social History Tobacco Use Smoking status: Never Smokeless tobacco: Never Substance Use Topics Alcohol use: No Drug use: No ALLERGIES: ALLERGIES Allergen Reactions Dust Unknown multiple environmental Vicodin [Hydrocodon* Other: See Comments Makes heart race per pt. CURRENT OUTPATIENT MEDICATIONS: sertraline (ZOLOFT) 100 mg tablet Take 1 1/2 tablets by mouth once daily. famotidine (PEPCID) 20 mg tablet Take 20 mg by mouth twice daily as needed. traZODone (DESYREL) 100 mg tablet Take 1/2 tablet by mouth at bedtime. simvastatin (ZOCOR) 10 mg tablet Take 10 mg by mouth daily at bedtime. naproxen (NAPROSYN) 500 mg tablet Take 500 mg by mouth twice daily as needed. folic acid 1 mg ORAL tablet Take 1 tablet by mouth once daily. hydrochlorothiazide 25 mg ORAL tablet Take 0.5 tablets by mouth once daily. irbesartan (AVAPRO) 300 mg ORAL tablet Take 300 mg by mouth once daily. pantoprazole (PROTONIX) 40 mg injection Inject 40 mg intravenously DAILY (6 AM). cholecalciferol (VITAMIN D-3) 400 unit tab Take 400 Units by mouth once daily. GLUCOSAMINE/METHYLSULFONYLMETH (GLUCOSAMINE SULFATE-MSM ORAL) Take 1 capsule by mouth once daily. Glucosamine sulfate 865 mg/Boswella extract 200 mg/MSM 195 mg sertraline (ZOLOFT) 50 mg tablet Take 1 tablet by mouth once daily. COMPOUNDED PRESCRIPTION Pro Vex Plus: Takes 2 tablets by mouth once daily. REVIEW OF SYSTEMS: GENERAL: No fever, night sweats, weight loss or malaise. All other reviewed and negative other than HPI. PHYSICAL EXAMINATION: VITAL SIGNS: BP 160/76 Pulse 61 Temp (Src) 98 (Temporal) Ht 5' 2 (1.58m) Wt 191 lb 8 oz (86.9kg) SpO2 96% BMI 35.02 kg/(m2). GENERAL APPEARANCE: Well appearing, in no acute distress, alert and oriented x3, well-hydrated, well nourished. I spent a total of 20 minutes on the date of the service which included preparing to see the patient, [id number] patient care, completing clinical documentation, obtaining and/or reviewing separately obtained history, counseling and educating the patient/family/caregiver, ordering medications, tests, or procedures, independently interpreting results (not separately reported), and communicating results to the patient/family/caregiver. Electronically Signed: Nathan Johnson MD June 23, 2023 9:37 AM [facility] [facility] 06-23-2023 History of Presen t illness Narrative HISTORY OF PRESENT ILLNESS: Cami Winchester is a 67 year old female history [facility], dx 20 years ago, gets phlebotomy every 3 months. Labs reviewed CLINICAL IMPRESSION: [facility] RECOMMENDATION/PLAN: 1. Phlebotomy as planned, labs as ordered 2. Back in 1 year Written and verbal health teaching given to patient, patient verbalizes understanding and agrees with treatment plan. PAST MEDICAL HISTORY Diagnosis Date Hypertension 06/04/1980 Other hemochromatosis 2001 Spinal stenosis 12/02/2020 PAST SURGICAL HISTORY Procedure Laterality Date HYSTERECTOMY HX 1990 Vaginal for bleeding from miscarriage, USO OTHER 2010 left ankle torn ligament repair No family history on file. Social History Tobacco Use Smoking status: Never Smokeless tobacco: Never Substance Use Topics Alcohol use: No Drug use: No ALLERGIES: ALLERGIES Allergen Reactions Dust Unknown multiple environmental Vicodin [Hydrocodon* Other: See Comments Makes heart race per pt. CURRENT OUTPATIENT MEDICATIONS: sertraline (ZOLOFT) 100 mg tablet Take 1 1/2 tablets by mouth once daily. famotidine (PEPCID) 20 mg tablet Take 20 mg by mouth twice daily as needed. traZODone (DESYREL) 100 mg tablet Take 1/2 tablet by mouth at bedtime. simvastatin (ZOCOR) 10 mg tablet Take 10 mg by mouth daily at bedtime. naproxen (NAPROSYN) 500 mg tablet Take 500 mg by mouth twice daily as needed. folic acid 1 mg ORAL tablet Take 1 tablet by mouth once daily. hydrochlorothiazide 25 mg ORAL tablet Take 0.5 tablets by mouth once daily. irbesartan (AVAPRO) 300 mg ORAL tablet Take 300 mg by mouth once daily. pantoprazole (PROTONIX) 40 mg injection Inject 40 mg intravenously DAILY (6 AM). cholecalciferol (VITAMIN D-3) 400 unit tab Take 400 Units by mouth once daily. GLUCOSAMINE/METHYLSULFONYLMETH (GLUCOSAMINE SULFATE-MSM ORAL) Take 1 capsule by mouth once daily. Glucosamine sulfate 865 mg/Boswella extract 200 mg/MSM 195 mg sertraline (ZOLOFT) 50 mg tablet Take 1 tablet by mouth once daily. COMPOUNDED PRESCRIPTION Pro Vex Plus: Takes 2 tablets by mouth once daily. REVIEW OF SYSTEMS: GENERAL: No fever, night sweats, weight loss or malaise. All other reviewed and negative other than HPI. PHYSICAL EXAMINATION: VITAL SIGNS: BP 160/76 Pulse 61 Temp (Src) 98 (Temporal) Ht 5' 2 (1.58m) Wt 191 lb 8 oz (86.9kg) SpO2 96% BMI 35.02 kg/(m^2). GENERAL APPEARANCE: Well appearing, in no acute distress, alert and oriented x3, well-hydrated, well nourished. I spent a total of 20 minutes on the date of the service which included preparing to see the patient, [id number] patient care, completing clinical documentation, obtaining and/or reviewing separately obtained history, counseling and educating the patient/family/caregiver, ordering medications, tests, or procedures, independently interpreting results (not separately reported), and communicating results to the patient/family/caregiver. Electronically Signed: Nathan Johnson MD June 23, 2023 9:37 AM documented in this encounter [facility] 11-16-2022 Note HNO ID: [id number] Author: Erick Kunz RN Service: ? Author Type: Registered Nurse Type: Progress Notes Filed: 11/16/2022 8:58 AM Note Text: Hct 33.9. Phlebotomy not needed today. [facility] 11-16-2022 History of Presen t illness Narrative Hct 33.9. Phlebotomy not needed today. documented in this encounter [facility] 09-18-2022 Miscellaneous Notes Spoke with patient and rescheduled. Patient's last Hct was 33.6 on 08/31/2022- no phlebo needed. Okay to schedule labs/phlebo prior to patient leaving for [place] in November. Jennifer Terry LPN Patient states she is going to [place] from 11/18-12/07. She is asking if she can have phlebo before or after. She is asking for a recommendation from Dr. Botello. Please advise patient and reschedule her 11/23 appt. documented in this encounter [facility] 07-06-2022 Miscellaneous Notes Spoke with patient and rescheduled. 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 HISTORY OF PRESENT ILLNESS: Ms Winchester is a 66-year-old lady with hemachromatosis. She has been getting therapeutic phlebotomy every 12 weeks since her initial diagnosis. Interim history: Patient denies polyuria or polydipsia. She has no fatigue, shortness of breath with phlebotomy. No lightheadedness or dizziness. She has no arthritic pain. She has no abdominal pain or jaundice. There is no changes in appetite or weight. She is doing well with phlebotomy maintaining a hematocrit above 38% and ferritin less than 50. PHYSICAL EXAMINATION: GENERAL: Ms Winchester appeared to be in no acute distress. Performance status 100%. BP 126/73 Pulse 74 Temp (Src) 97.3 (Temporal) Ht 5' 2 (1.58m) Wt 198 lb (89.8kg) BMI 36.21 kg/(m^2). HEENT: Sclerae are anicteric. NECK: Supple, no palpable cervical or supraclavicular adenopathy. CHEST: Clear to auscultation. CARDIAC: Unremarkable. Regular rate and rhythm. ABDOMEN: Obese, soft, no tenderness, no mass, hepatosplenomegaly, or ascites. EXTREMITIES: Show no clubbing, cyanosis, or edema. NEUROLOGIC: Nonfocal. LABORATORY STUDIES: Component Latest Ref Rng & Units 06/01/2022 WBC 3.70 - 11.00 k/uL 5.34 RBC 3.90 - 5.20 m/uL 3.94 Hemoglobin 11.5 - 15.5 g/dL 12.0 Hematocrit 36.0 - 46.0 % 34.9 (L) MCV 80.0 - 100.0 fL 88.6 MCH 26.0 - 34.0 pg 30.5 MCHC 30.5 - 36.0 g/dL 34.4 RDW-CV 11.5 - 15.0 % 13.3 Platelet Count 150 - 400 k/uL 285 MPV 9.0 - 12.7 fL 9.1 Neut% % 50.5 Abs Neut (ANC) 1.45 - 7.50 k/uL 2.70 Lymph% % 35.8 Abs Lymph 1.00 - 4.00 k/uL 1.91 Mcdonald% % 7.9 Abs Mcdonald <0.87 k/uL 0.42 Eosin% % 4.9 Abs Eosin <0.46 k/uL 0.26 Baso% % 0.7 Abs Baso <0.11 k/uL 0.04 Immature Gran % % 0.2 IMMATURE GRANS (ABS) <0.10 k/uL <0.03 NRBC /100 WBC 0.0 Absolute nRBC <0.01 k/uL <0.01 DTYPE Auto Component Latest Ref Rng & Units 06/01/2022 Albumin 3.9 - 4.9 g/dL 4.7 Bilirubin, Total 0.2 - 1.3 mg/dL 0.4 Bilirubin, Conjug <0.2 mg/dL <0.2 Alkaline Phosphatase 34 - 123 U/L 50 AST 13 - 35 U/L 27 ALT 7 - 38 U/L 29 Protein, Total 6.3 - 8.0 g/dL 7.3 Component Latest Ref Rng & Units 06/01/2022 Ferritin 14.7 - 205.1 ng/mL 30.9 AFP <11.0 ng/mL <3.0 IMPRESSION: 1) Hereditary hemochromatosis - Ms Winchester is doing well with therapeutic phlebotomy - LFT's and AFP were normal & ferritin < 50 2) Hypermetabolic syndrome and obesity -Borderline diabetes PLAN: 1) continue phlebotomy every 3 months with fluid replacement. Monitor CBC every 3 months. If her hematocrit is greater than 34%, then proceed with phlebotomy. Maintain ferritin level less than 50. Repeat CBC, CMP, ferritin, and OV in one year. 2) monitor blood sugars at home and follow-up with PCP. Diet, weight reduction and possible starting Metformin if her fasting blood sugar & Hemoglobin A1c are still elevated. Portions of this documentation were copied and pasted from previous office visit notes in order to provide a cohesive continuity of the history. The note has been reviewed and edited and updated as necessary. Sophie Botello MD Cc: Dr. Stephanie Kelley documented in this encounter [facility] 02-04-2022 Miscellaneous Notes Patient was reschedule to 03/06/22 @ 12:00pm lab and 12:30pm phlebo. I called and left patient a detailed message in regards to this and let her know she could call back if she had questions. 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 documented as of this encounter (statuses as of 06/01/2022) [facility] History of Past illness Narrative* Problem Noted Date Resolved Date Other hemochromatosis 09/29/2010 07/20/2017 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 documented as of this encounter (statuses as of 06/02/2022) [place] [id number] History of Past illness Narrative* Problem Noted Date Resolved Date Other hemochromatosis 09/29/2010 07/20/2017 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 documented as of this encounter (statuses as of 07/06/2022) [place] [id number] History of Past illness Narrative* Problem Noted Date Resolved Date Other hemochromatosis 09/29/2010 07/20/2017 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 documented as of this encounter (statuses as of 08/31/2022) [place] [id number] History of Past illness Narrative* Problem Noted Date Resolved Date Other hemochromatosis 09/29/2010 07/20/2017 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 documented as of this encounter (statuses as of 09/18/2022) [place] [id number] History of Past illness Narrative* Problem Noted Date Resolved Date Other hemochromatosis 09/29/2010 07/20/2017 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 documented as of this encounter (statuses as of 11/14/2022) [facility] History of Past illness Narrative* Problem Noted Date Resolved Date Other hemochromatosis 09/29/2010 07/20/2017 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 documented as of this encounter (statuses as of 11/16/2022) [place] [id number] History of Past illness Narrative* Problem Noted Date Resolved Date Other hemochromatosis 09/29/2010 07/20/2017 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 documented as of this encounter (statuses as of 02/07/2023) [facility] History of Past illness Narrative* Problem Noted Date Resolved Date Other hemochromatosis 09/29/2010 07/20/2017 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 documented as of this encounter (statuses as of 02/08/2023) [facility] History of Past illness Narrative* Problem Noted Date Diagnosed Date Resolved Date Other hemochromatosis 09/29/20102016 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 07/20/2014 documented as of this encounter (statuses as of 05/17/2023) [place] [address]-27-2010 History of Past illness Narrative* Problem Noted Date Diagnosed Date Resolved Date Other hemochromatosis 09/29/20102016 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 07/20/2014 documented as of this encounter (statuses as of 05/17/2023) [place] [address]-27-2010 History of Past illness Narrative* Problem Noted Date Diagnosed Date Resolved Date Other hemochromatosis 09/29/20102016 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 07/20/2014 documented as of this encounter (statuses as of 06/23/2023) [place] [address]-27-2010 History of Past illness Narrative* Problem Noted Date Diagnosed Date Resolved Date Other hemochromatosis 09/29/20102016 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 07/20/2014 documented as of this encounter (statuses as of 08/12/2023) [facility] Diagnosis Hemochromatosis, hereditary (HCC)- Primary Hereditary hemochromatosis [facility] Diagnosis Hemochromatosis, hereditary (HCC)- Primary Hereditary hemochromatosis [facility] Diagnosis Hemochromatosis, hereditary (HCC)- Primary Hereditary hemochromatosis [facility] Diagnosis Hemochromatosis, hereditary (HCC)- Primary Hereditary hemochromatosis [facility] Diagnosis Hemochromatosis, hereditary (HCC)- Primary Hereditary hemochromatosis [facility] Diagnosis Hemochromatosis, hereditary (HCC)- Primary Hereditary hemochromatosis [facility] Diagnosis Hemochromatosis, hereditary (HCC)- Primary Hereditary hemochromatosis [facility] Diagnosis Hemochromatosis, hereditary (HCC)- Primary Hereditary hemochromatosis documented in this encounter [facility] Summary Purpose Family History No Family History Records Found Brother (s) Status:Active Comments:In [place] [employer]. 8. one from liver CA (hemochromatosis) one from accident; 1 of an unknown CA. Daughter (s) Status:Active Comments:In good health. 3 anxiety Father Status:Active Comments: d. age 80 cancer colon, hptn, CAD Mother Status:Active Comments: d. age 83 CRF, DM, CAD Sister (s) Status:Active Comments:In [facility]. 2. HTN both Son (s) Status:Active Comments:In good health. 1 Brother (s) Status:Active Comments:In [place] [facility]. 8. one from liver CA (hemochromatosis) one from accident; 1 of an unknown CA. Daughter (s) Status:Active Comments:In good health. 3 anxiety Father Status:Active Comments: d. age 80 cancer colon, hptn, CAD Mother Status:Active Comments: d. age 83 CRF, DM, CAD Sister (s) Status:Active Comments:In [facility] health. 2. HTN both Son (s) Status:Active Comments:In good health. 1 Advance Directives No Advanced Directives Records FoundNo Advanced Directives Records FoundNo Advanced Directives Records FoundNo Advanced Directives Records Found Medications Administered Section Inactive Administered Medications - up to 3 most recent administrations Medication Order MAR Action Action Date Dose Rate Site NaCl 0.9% iv bolus 500 mL 500 mL, INTRAVENOUS, at 999 mL/hr, Administer over 0.5 Hours, ONCE, 1 dose, On Wed06/01/22 at 0930, Give after phelbotomy New Bag/Syringe/Bottle 06/01/2022 9:27 AM EDT 500 mL 999 mL/hr Inactive Administered Medications - up to 3 most recent administrations Medication Order MAR Action Action Date Dose Rate Site NaCl 0.9% iv bolus 500 mL 500 mL, INTRAVENOUS, at 999 mL/hr, Administer over 0.5 Hours, ONCE, 1 dose, On Wed02/08/23 at 1000, Give after phelbotomy New Bag/Syringe/Bottle 02/08/2023 9:48 AM EDT 500 mL 999 mL/hr Inactive Administered Medications - up to 3 most recent administrations Medication Order MAR Action Action Date Dose Rate Site NaCl 0.9% iv bolus 500 mL 500 mL, INTRAVENOUS, at 999 mL/hr, Administer over 0.5 Hours, ONCE, 1 dose, On Wed05/17/23 at 0930, Give after phelbotomy New Bag/Syringe/Bottle 05/17/2023 9:30 AM EDT 500 mL 999 mL/hr Inactive Administered Medications - up to 3 most recent administrations Medication Order MAR Action Action Date Dose Rate Site NaCl 0.9% iv bolus 500 mL 500 mL, INTRAVENOUS, at 999 mL/hr, Administer over 0.5 Hours, ONCE, 1 dose, On Cynthia 08/12/23 at 1000, Give after phelbotomy New Bag/Syringe/Bottle 08/12/2023 10:13 AM EST 500 mL 999 mL/hr Additional Source Comments INFORMATION SOURCE (unrecogn ized section and content) DATE CREATED AUTHOR AUTHOR'S ORGANIZ ATION 10/14/2022 [facility] ([place]) DATE CREATED AUTHOR AUTHOR'S ORGANIZ ATION 10/22/2023 [facility] DATE CREATED AUTHOR AUTHOR'S ORGANIZ ATION 11/04/2023 [facility] Source Comments (unrecognize d section and content) In the event this informatio n is protected by the Federal Confidentiality of Alcohol and Drug Abuse Patient Records regulations: The Federal rules restrict any use of the information to criminally investigate or prosecute any alcohol or drug abuse patient.[facility] the event this information is protected by the Federal Confidentiality of Alcohol and Drug Abuse Patient Records regulations: The Federal rules restrict any use of the information to criminally investigate or prosecute any alcohol or drug abuse patient.[facility] the event this information is protected by the Federal Confidentiality of Alcohol and Drug Abuse Patient Records regulations: The Federal rules restrict any use of the information to criminally investigate or prosecute any alcohol or drug abuse patient.[facility] the event this information is protected by the Federal Confidentiality of Alcohol and Drug Abuse Patient Records regulations: The Federal rules restrict any use of the information to criminally investigate or prosecute any alcohol or drug abuse patient.[facility] the event this information is protected by the Federal Confidentiality of Alcohol and Drug Abuse Patient Records regulations: The Federal rules restrict any use of the information to criminally investigate or prosecute any alcohol or drug abuse patient.[facility] the event this information is protected by the Federal Confidentiality of Alcohol and Drug Abuse Patient Records regulations: The Federal rules restrict any use of the information to criminally investigate or prosecute any alcohol or drug abuse patient.[facility] the event this information is protected by the Federal Confidentiality of Alcohol and Drug Abuse Patient Records regulations: The Federal rules restrict any use of the information to criminally investigate or prosecute any alcohol or drug abuse patient.[facility] the event this information is protected by the Federal Confidentiality of Alcohol and Drug Abuse Patient Records regulations: The Federal rules restrict any use of the information to criminally investigate or prosecute any alcohol or drug abuse patient.[facility] the event this information is protected by the Federal Confidentiality of Alcohol and Drug Abuse Patient Records regulations: The Federal rules restrict any use of the information to criminally investigate or prosecute any alcohol or drug abuse patient.[facility] the event this information is protected by the Federal Confidentiality of Alcohol and Drug Abuse Patient Records regulations: The Federal rules restrict any use of the information to criminally investigate or prosecute any alcohol or drug abuse patient.[facility] the event this information is protected by the Federal Confidentiality of Alcohol and Drug Abuse Patient Records regulations: The Federal rules restrict any use of the information to criminally investigate or prosecute any alcohol or drug abuse patient.[facility] the event this information is protected by the Federal Confidentiality of Alcohol and Drug Abuse Patient Records regulations: The Federal rules restrict any use of the information to criminally investigate or prosecute any alcohol or drug abuse patient.[facility] the event this information is protected by the Federal Confidentiality of Alcohol and Drug Abuse Patient Records regulations: The Federal rules restrict any use of the information to criminally investigate or prosecute any alcohol or drug abuse patient.[facility] the event this information is protected by the Federal Confidentiality of Alcohol and Drug Abuse Patient Records regulations: The Federal rules restrict any use of the information to criminally investigate or prosecute any alcohol or drug abuse patient.[facility] Reason for Visit (unrecogniz ed section and content) Reason Comments Phlebotomy Reason Comments Established Patient Reason Comments Appointment Cancelled Reason Comments Patient Question Reason Comments Phlebotomy with hydration Reason Comments Opened In Error Care Teams (unrecognized sec tion and content) Market Research Lead Relationship Specialty Start Date End Date Wily Kelley MD PCP - General Family Practice 07/19/20 Market Research Lead Relationship Specialty Start Date End Date Wily Kelley MD PCP - General Family Medicine 07/19/20 Market Research Lead Relationship Specialty Start Date End Date Wily Kelley MD PCP - General Family Medicine 07/19/20 Market Research Lead Relationship Specialty Start Date End Date Wily Kelley MD PCP - General Family Medicine 07/19/20 Market Research Lead Relationship Specialty Start Date End Date Khurram Kelley MD PCP - General Family Medicine 07/19/20 Market Research Lead Relationship Specialty Start Date End Date Khurram Kelley MD PCP - General Family Medicine 07/19/20 Market Research Lead Relationship Specialty Start Date End Date Khurram Kelley MD PCP - General Family Medicine 07/19/20 Market Research Lead Relationship Specialty Start Date End Date Khurram Kelley MD PCP - General Family Medicine 07/19/20 Market Research Lead Relationship Specialty Start Date End Date Khurram Kelley MD PCP - General Family Medicine 07/19/20 Market Research Lead Relationship Specialty Start Date End Date Khurram Kelley MD PCP - General Family Medicine 07/19/20 Nathan Johnson MD [address] [facility] [place] [address] Hematology/Oncology 06/23/23 Market Research Lead Relationship Specialty Start Date End Date Khurram Kelley MD PCP - General Family Medicine 07/19/20 Nathan Johnson MD [address] [facility] [place], [place] [id number] Hematology/Oncology 06/23/23 FOR RECORDS PERTAINING TO PATIENTS WHO ARE OR HAVE BEEN ENROLLED IN A CHEMICAL DEPENDENCY/SUBSTANCEABUSE PROGRAM, SOME INFORMATION MAY BE OMITTED. This clinical summary was aggregated from multiple sources. Caution should be exercised in using it in the provision of clinical care. This summary normalizes information from multiple sources, and as a consequence, information in this document may materially change the coding, format and clinical context of patient data. In addition, data may be omitted in some cases. CLINICAL DECISIONS SHOULD BE BASED ON THE PRIMARY CLINICAL RECORDS. [facility] [employer] [facility]. provides no warranty or guarantee of the accuracy or completeness of information in this document.
[2023-11-05 09:14] LABS: Absolute Lymphocyte Count 2.08 X10^3/uL (0.83-4.51); Basophil# 0.03 X10^3/uL; Basophil% 0.5 % (0-1); Eosinophil# 0.21 X10^3/uL; Eosinophils% 3.6 % (0-5); Hematocrit 35.3 % (37-47); Lymphocyte # 2.08 X10^3/ul (0.83-4.51); Mean Corpuscular Volume 94.1 fL (81-99); Mean Platelet Vol. 9.6 fl (6.2-12.0); Monocyte# 0.45 X10^3/uL; Monocyte% 7.8 % (0-10); NRBC Flagged by Analyzer 0 % (0-5); Neutrophil % 51.9 % (47-70); Platelet Count 275 K/mm3 (150-450); RBC Distribution Width CV 12.1 % (11.6-14.6); RBC Distribution Width SD 41.5 fl (35.1-43.9); Red Blood Count 3.75 M/mm3 (4.2-5.4); White Blood Count 5.8 K/mm3 (4.4-11.0)
[2023-11-05 09:46] LABS: Albumin, Serum 3.9 g/dL (3.2-5.0); Anion Gap 4 (5-15); BUN 17 mg/dL (7-18); BUN/Creat Ratio 29.6 RATIO (10-20); Calcium,Total 9.6 mg/dL (8.5-10.1); Chloride 108 mmol/L (98-107); Creatinine, Serum 0.58 mg/dL (0.55-1.02); EST Glomerular Filtration Rate 111 mL/min (>60); Est Glom Filt Rate - Afr Amer 135 mL/min (>60); Glucose 139 mg/dL (74-106); Potassium 3.7 mmol/L (3.5-5.1); Sodium Level 140 mmol/L (136-145)
[2023-11-05 09:52] LABS: Hemoglobin A1c 6.5 % (3.8-5.6)
== END | disposition home or self-care (01) ==
PROVIDERS: PCP Family Medicine; Referring Provider Specialist; Visit Provider Specialist
DX: Z01.818 Encounter for other preprocedural examination (principal); M17.11 Unilateral primary osteoarthritis, right knee; Z01.810 Encounter for preprocedural cardiovascular examination; M21.161 Varus deformity, not elsewhere classified, right knee
CPT/HCPCS: 36415; 73700; 80048; 82040; 83036; 85025; 93005

== ENCOUNTER 2024-06-12 08:03 | Outpatient (RCR) | payer MEDICARE, SELFPAY ==
--- NOTE | 2024-06-12 10:53 | HP.PTEVAL ---
Patient's Visit Information Visit Information Visit Information: MING BOSTON is a 68 year old F referred to Physical Therapy by Brian Phillips MD with a diagnosis of PRIMARY OSTEOARTHRITIS OF RIGHT KNEE VARUS DEFORMITY. Date of Evaluation: 06/12/24 Physical Therapist: Antonio Patel, PT, Cert MDT, OCS Visit Plan Frequency: 1-2x /Week Duration: 4 Weeks Plan: PT INTERVENTIONS ROM, STRENGTHENING QUADS/HAMS/HIP AND FUNCTIONAL STRENGTHENING WITH HEP Subjective Subjective: This 68 y/o female presents to physical therapy with right knee pain with DJD. Patient developed right knee pain ~ 8 years which has progressively worse. Seen DR did x-rays DJD and recommended PT . Patient had edema drained swelling and cortisone injection. Patient states getting closed for TKA.Patient pain located anterior knee. Patient pain described as ache. Aggravating stairs ,occasionally squatting ,extended standing and kneeling . Alleviating factors rest. Denies paresthesia/tingling.Patient sleeping good. Patient condition affects QOL and function /housework tasks. Pateint goals learn ex;s to do at home. 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 Pain Right Knee: Pain Intensity (Out of 10): 2 Pain Intensity Range: 10 Objective Objective: POSTURE: mild forward posture GAIT: reciprocal pattern EFFUSION: mild NEURO: denies paresthesia/tingling PALAPTION: medial/lateral tender AROM: 0-110 degrees supine flexion MMT: quad/hams 4/5 ,hip flexion 4/5 ,hip abd 4/5 ,ankle 4/5 FLEXABILITY: hamstrings min tight STAIRS: one step at time Balance/Special Test Scores Lower Extremity Functional Score: 38 Goals Goal 1:: I with HEP for knee Goal Time Frame: 2-4 Weeks Goal 2:: Patient to demonstrate 50% improve function and gait Goal Time Frame: 2-4 Weeks Goal 3:: Patient to improve LFES score by 5 points to improve function. Goal Time Frame: 2-4 Weeks Goal 4:: Patient improve AROM knee flexion by 5-10 degrees to improve stairs. Goal Time Frame: 4-6 Weeks Rehabilitation Potential Physical Therapy Diagnosis: This patient ahs right DJD with increase pain ,edema ,stairs and decrease ROM thus benefit from skilled PT Rehabilitation Potential: Good Anticipated Interventions Patient/Client Instruction: Educate patient on: Condition and Plan of Care For the Purpose of:: To decrease pain, To decrease swelling/inflammation, To improve muscle performance and motor function, To improve ability to perform ADL's, To increase tolerance to activity/condition/position, To improve ability of physical actions for home/community/work/leisure, To improve gait and locomotor functions, To improve health of tissue, To decrease soft tissue restriction and To improve balance Therapeutic Exercise to Include: Strength training, Endurance training, Balance training, Flexibilty training and Active ROM For the Purpose of:: To decrease pain, To increase ROM, To improve muscle performance and motor function, To improve ability to perform ADL's, To increase tolerance to activity/condition/position, To improve ability of physical actions for home/community/work/leisure, To improve health of tissue, To decrease soft tissue restriction and To increase flexibility/ROM Text: Thank you for the opportunity to evaluate your patient. For Medicare and Medicare HMO plans, please review the plan of care and approve it. It will need to be FAXED BACK to us at [phone] for Medicare purposes. For Medicare only, by signing this I certify the plan of care. Please let me know if there are questions or concerns regarding this plan of care. Physician Signature: Date:
--- NOTE | 2024-09-13 14:01 | HP.PT.NRP ---
Patient Information Patient Information: MING BOSTON was seen in my office for initial evaluation on 06/12/24. The following Plan of Care was established for this patient: POC Established Initial Frequency: 1-2x /Week Initial Duration: 4 Weeks Anticipated Interventions Patient/Client Instruction: Educate patient on: Condition and Plan of Care For the Purpose of:: To decrease pain, To decrease swelling/inflammation, To improve muscle performance and motor function, To improve ability to perform ADL's, To increase tolerance to activity/condition/position, To improve ability of physical actions for home/community/work/leisure, To improve gait and locomotor functions, To improve health of tissue, To decrease soft tissue restriction and To improve balance Therapeutic Exercise to Include: Strength training, Endurance training, Balance training, Flexibilty training and Active ROM For the Purpose of:: To decrease pain, To increase ROM, To improve muscle performance and motor function, To improve ability to perform ADL's, To increase tolerance to activity/condition/position, To improve ability of physical actions for home/community/work/leisure, To improve health of tissue, To decrease soft tissue restriction and To increase flexibility/ROM Last Seen Last Seen: This patient was last seen in our office . Pertinent comments regarding their Physical therapy will appear below: Patient was seen for PT evaluation for right knee pain for HEP At this point I will be discontinuing this patient from physical therapy. I would be happy to see this patient again in the future if found appropriate by the physician. Thank you! Antonio Patel, PT, Cert MDT, OCS Balance/Gait/Functional tests Balance/Special Test Scores Lower Extremity Functional Score: 38
== END 2024-06-12 19:00 | disposition home or self-care (01) ==
LOC: PT 08:03
PROVIDERS: PCP Family Medicine; Referring Provider Orthopaedic Surgery; Visit Provider Orthopaedic Surgery
DX: M17.11 Unilateral primary osteoarthritis, right knee (principal); M21.161 Varus deformity, not elsewhere classified, right knee
CPT/HCPCS: 97110; 97162